=== PATIENT | female | born 2000 | race Caucasian/White ===

== ENCOUNTER 2020-01-25 16:07 | Outpatient (REF) | payer OTHER, SELFPAY | END 2020-01-25 16:08 | disposition home or self-care (01) | LOC: HO.LAB 16:07 | PROVIDERS: PCP Nurse Practitioner Pediatrics; Visit Provider Internal Medicine | DX: Z20.828 Contact with and (suspected) exposure to other viral communicable diseases (principal) | CPT/HCPCS: C9803; U0003 ==

== ENCOUNTER 2022-06-06 16:40 | Outpatient (REF) | payer OTHER, SELFPAY ==
[2022-06-07 11:31] LABS: Appearance Urine Turbid; Color Urine Yellow; Glucose Urine UA Negative (Negative); Leukocyte Esterase Urine Trace (Negative); Nitrite Urine Positive (Negative); Specific Gravity - Urine >= 1.030 (1.005-1.025); UMIC TRIGGER UA YES; Urine Blood Negative (Negative); Urine Ketones Negative (Negative); Urine Protein Trace mg/dL (Neg-Trace)
[2022-06-07 11:41] LABS: Bacteria Urine 4+ (None Seen); Calcium Oxalate Crystals Urine Present; Hyaline Casts Urine 0-2 /LPF (0-2); RBC Urine 0-2 /HPF (0-2)
== END 2022-06-06 16:41 | disposition home or self-care (01) ==
LOC: HO.LAB 16:40
PROVIDERS: Visit Provider Hospitalist
DX: R82.90 Unspecified abnormal findings in urine (principal)
CPT/HCPCS: 81001; 81003

== ENCOUNTER 2023-07-01 16:06 | Outpatient (AMB) | payer OTHER, SELFPAY ==
[2023-07-01 16:07] VITALS: BP 137/74; PULSE 84; RESP 13; TEMP 36.6; O2SAT 100; BMI 37.8
--- NOTE | 2023-07-01 16:07 | A.OFFPC_ITS ---
Vital Signs 07/01/23 16:07 Height 5 ft 1 in Weight 200 lb BMI 37.8 BP 137/74 Blood Pressure Location Rt brachial Position Sitting Respiration 13 Pulse 84 Pulse Source Pulse Oximeter Temp 97.9 F Temp Source Temporal Artery Scan Pulse Oximetry (%) 100 Oxygen Delivery Method Room Air Intake Visit Reasons: STEFANIE from [facility] Establish Care Intake Note: Patient is here to establish care with Tatiana Stewart. Patient reports she would like routine labs, with thyroid. Patient would like a referral for allergy and immunology. Patient reports she has no other concerns. Nub Card Tender Required: No Accompanied by: Self / Same As Patient Allergies No Known Allergies Allergy (Verified 07/01/23 16:27) Medication List - Last Reconciled 07/01/23 by ANDRESSA Garcia No Known Home Meds Tobacco use date assessed: 07/01/23 Dental Screening Dental Screen Date: 07/01/23 Did you have a dental visit in the last 12 months?: Yes Did you have a dental problem in the last 6 months where you did not have access to dental care?: No Was dental information given to patient?: Patient has dentist HPI HPI Comments History of Present Illness Details 23 y/o F with obesity, renal stones, GA D, MDD, hemorrhoids, low back pain Status post nephrolithotomy Health Maintenance: Pap reports UTD 2022 Specialists: None Here today for CPE MARCEL/MDD - not active w/ counselor, has a contact and will schedule. Not on meds Seasonal allergies wants to be tested Requests STD screen/testing. Declines vaccines Wants to see Chiro for chronic low back pain Hemorrhoid, comes and goes, r/t constipation, tx w/ Miralax. Did see GI in the past; discouraged surgery d/t childbearing years. COUNTS INCLUDE 234 BEDS AT THE [facility] Medical History (Updated 07/01/23 @ 17:08 by ANDRESSA Garcia) H/O nephrolithotomy with removal of calculi Surgical History (Updated 07/01/23 @ 16:17 by Lexie Parker CMA) No pertinent past surgical history Family History (Updated 07/01/23 @ 16:17 by Lexie Parker CMA) Mother Hypertension Diabetes Social History (Updated 07/01/23 @ 16:19 by Lexie Parker CMA) Household Members: Family Housing: Apartment 75 years or older and lives alone: No Alcohol intake: current Alcohol intake frequency: holidays/special occasions only Patient Tobacco Use Status: Never used Tobacco e-Cigarette/Vaping Use: Never Used service: No Current occupational status: employed Current occupation: [employer] Current occupational exposures/hazards: No Cognitive needs: No Hearing needs: No Vision needs: Yes (wears glasses ) Questionnaire PHQ-9 Over the last 2 weeks, how often have you been bothered by any of the following problems? 1. Little interest or pleasure in doing things: not at all 2. Feeling down, depressed, or hopeless: several days 3. Trouble falling or staying asleep, or sleeping too much: several days 4. Feeling tired or having little energy: several days 5. Poor appetite or overeating: more than half the days 6. Feeling bad about yourself - or that you are a failure or have let yourself or your family down: nearly every day 7. Trouble concentrating on things, such as reading the newspaper or watching television: more than half the days 8. Moving or speaking so slowly that other people could have noticed. Or the opposite - being so fidgety or restless that you have been moving around a lot more than usual: not at all 9. Thoughts that you would be better off or of hurting yourself in some way: not at all Total score: 10 Depression Screening Interpretation: Positive Depression Screening Follow-up: Existing condition Depression Screening Done: Yes 37298 - PHQ-9 Billing: Yes Source: Developed by Drs. Ubaldo Pierre, Rylee Almazan, Cuate Lerma and colleagues, with an educational ricky from [employer]. Thrive Questionnaire Date Thrive assessed: 07/01/23 I am a: Patient What is your living situation today?: I have a steady place to live Within the past 12 months, did the food you bought not last and you didn't have the money to get more?: Never true Within the past 12 months, did you worry whether your food would run out before you got money to buy more?: Never true Do you have trouble paying for medicines?: No Do you have trouble getting transportation to medical appointments?: No Do you have trouble paying your heating and electricity bill?: No Do you have trouble taking care of your child, family member or friend?: No Do you have trouble with day-to-day activities such as bathing, preparing meals, shopping, managing finances, etc.?: No Are you currently unemployed and looking for a job?: No Are you interested in more education?: No Please select the resources that you would like help with: None Currently or been in a relationship where the following occur: no concerns reported THRIVE Score: 0 AUDIT C Alcohol Use Questionnaire (AUDIT-C) 1. How often do you have a drink containing alcohol?: Monthly or less 2. How many drinks containing alcohol do you have on a typical day when you are drinking?: 1 or 2 3. How often do you have six or more drinks on one occasion?: Never Total Score: 1 Score Reviewed/Action Taken: Yes MARCEL-7 AMB Questionnaire MARCEL-7 Date MARCEL - 7 assessed: 07/01/23 Feeling nervous, anxious, or on edge: 3 = Nearly every day Not being able to stop or control worryin = Several days Worrying too much about different things: 3 = Nearly every day Trouble relaxin = Several days Being so restless that it is hard to sit still: 1 = Several days Becoming easily annoyed or irritable: 1 = Several days Feeling afraid as if something awful might happen: 3 = Nearly every day Total MARCEL-7 score (0-4 normal; 5-9 mild; 10-14 moderate; 15-21 severe): 13 Source: Developed by Drs. Ubaldo Pierre, Rylee Almazan, Cuate Lerma and colleagues, with an educational ricky from [employer]. MARCEL-7 Assessment Billing MARCEL-7 Assessment Tool: MARCEL-7 Assessment 77424 Review of Systems Const Details: Constitutional: Denies fever. Skin: Denies rash. Eye: Denies eye pain. ENMT: Denies sore throat and nasal congestion. Respiratory: Denies shortness of breath and cough. Gastrointestinal: Denies nausea, vomiting or abdominal pain. Cardiovascular: Denies chest pain and syncope. Genitourinary: Denies dysuria. Musculoskeletal: Denies back pain and extremity pain. Neurologic: Denies headaches, confusion, and weakness. Psychiatric: Denies suicidal thoughts and substance abuse. Allergy/ Immunologic: Denies impaired immunity. Physical exam (Primary Care) Vital Signs: Last Vital Signs Temp 97.9 F 07/01/23 16:07 Pulse 84 07/01/23 16:07 Resp 13 07/01/23 16:07 BP 137/74 07/01/23 16:07 Pulse Ox 100 07/01/23 16:07 Oxygen Delivery Method Room Air 07/01/23 16:07 BMI result Body Mass Index 37.8 BMI Assessment/Plan discussion: High BMI High, discussed plan: lifestyle Tobacco/Smoking Status: Tobacco use Status Tobacco use date assessed 07/01/23 07/01/23 16:23 Patient Tobacco Use Status Never used Tobacco 07/01/23 16:23 e-Cigarette/Vaping Use Never Used 07/01/23 16:19 PHQ-9: PHQ-9 Score PHQ-9: Total score 10 07/01/23 16:23 Depression Screening Interpretation: Positive Depression Screening Follow-up: Existing condition Thrive Assessment: Date of Thrive Assessment Date Thrive assessed 07/01/23 07/01/23 16:23 Currently or been in a relationship where the following occur: no concerns reported Advance Care Planning discussion: Exists, not on file Date of discussion: 07/01/23 Who was present: SELF Forms completed: Health Care Proxy and MOLST Time spent: 1-15 minutes, not on file Actual minutes spent: 3 Const Other: General: Well developed, well nourished, in no acute distress. Appears stated age. Head: Normocephalic, atraumatic. Eyes: Pupils are equal, round and reactive to light and accommodation. Conjunctivae are clear. Vision grossly normal. Ears: TMs clear AU, EACS WNL Nose: Patent, without discharge. Mouth: There are no ulcers or lesions noted. No inflammation, no post nasal drip, no plaques nor exudates. Neck: Supple, no adenopathy or thyromegaly. Lungs: Clear to auscultation bilaterally. No rales, rhonchi or wheeze noted. Good air flow in all [place]. Heart: Regular rate and rhythm. No murmurs, click, rubs or gallops are noted. Abdomen: Bowel sounds present in all quadrants. The abdomen is soft, nontender, with no masses or organomegaly noted. No hernias are noted. Musculoskeletal: Joints are nontender, without swelling, redness, or effusions. Range of motion is observed to be normal. Pulses: Peripheral pulses are equal and palpable bilaterally. Extremities: No clubbing, cyanosis nor edema is noted. Neurologic: Gait and station normal. Cranial Nerves 2-12 intact. Motor strength grossly symmetrical and intact. No sensory loss. Balance normal. Skin: No rashes, ulcers, or lesions noted. Turgor is good. Skin color is good. Hair and nails are without abnormalities. Psych: Normal eye contact, affect and mood appropriate, and normal interact ions. Patient is alert and appropriate to context. Assessment and Plan Assessment & Plan (1) Normal physical exam: Code(s): Z00.00 - Encounter for general adult medical examination without abnormal findings (2) No pertinent past surgical history: Code(s): Z78.9 - Other specified health status (3) Laboratory exam ordered as part of routine general medical examination: Code(s): Z00.00 - Encounter for general adult medical examination without abnormal findings (4) Allergies: Comment: refer for allergy testing per request Code(s): T78.40XA - Allergy, unspecified, initial encounter Qualifiers: Encounter type: initial encounter Qualified Code(s): T78.40XA - Allergy, unspecified, initial encounter (5) Encounter for screening examination for sexually transmitted disease: Code(s): Z11.3 - Encounter for screening for infections with a predominantly sexual mode of transmission (6) Skin cancer screening: Comment: referred to derm per request Code(s): Z12.83 - Encounter for screening for malignant neoplasm of skin (7) Hemorrhoid: Comment: supportive care witch rogers pads, constipation control using OTC meds if worsening, can refer to gI Code(s): K64.9 - Unspecified hemorrhoids Qualifiers: Hemorrhoid type: first degree Qualified Code(s): K64.0 - First degree hemorrhoids (8) Low back pain: Comment: refer to chiro per request Code(s): M54.50 - Low back pain, unspecified Qualifiers: Chronicity: chronic Back pain laterality: left Sciatica presence: with sciatica Sciatica laterality: sciatica of left side Qualified Code(s): M54.42 - Lumbago with sciatica, left side; G89.29 - Other chronic pain Orders: Orders Hemoglobin A1c Today Z00.00 - Encounter for general adult medical examination without abnormal findings Microalbumin, Random (w Creat) Today Z00.00 - Encounter for general adult medical examination without abnormal findings Vitamin D 1,25 dihydroxy Today Z00.00 - Encounter for general adult medical examination without abnormal findings Complete Blood Count no Diff Today Z00.00 - Encounter for general adult medical examination without abnormal findings Herpes Simplex Virus Ab IgG Today Z11.3 - Encounter for screening for infections with a predominantly sexual mode of transmission Comprehensive [place]. Panel Fast Today Z00.00 - Encounter for general adult medical examination without abnormal findings Lipid Panel Today Z00.00 - Encounter for general adult medical examination without abnormal findings IRON PROFILE Today Z00.00 - Encounter for general adult medical examination without abnormal findings Vitamin B12 Today Z00.00 - Encounter for general adult medical examination without abnormal findings HIV Ab/Ag Today Z11.3 - Encounter for screening for infections with a predominantly sexual mode of transmission CT NG by PCR Today Z11.3 - Encounter for screening for infections with a predominantly sexual mode of transmission Syphilis Screen Today Z11.3 - Encounter for screening for infections with a predominantly sexual mode of transmission Referrals Dermatology Referral Z12.83 - Encounter for screening for malignant neoplasm of skin Allergy & Immunology Referral T78.40XA - Allergy, unspecified, initial encounter Chiropractic Referral M54.50 - Low back pain, unspecified Patient Instructions: RTO 1 YEAR FOR CPE, SOONER PRN Try Witch Rogers Pads & control constipation using OTC meds, Health screenings for women ages 18 to 39 You should visit your health care provider from time to time, even if you are healthy. The purpose of these visits is to: Screen for medical issues Assess your risk for future medical problems Encourage a healthy lifestyle Update vaccinations and other preventive care services Help you get to know your provider in case of an illness Information Even if you feel fine, you should still see your provider for regular checkups. These visits can help you avoid problems in the future. For example, the only way to find out if you have high blood pressure is to have it checked regularly. High blood sugar and high cholesterol levels also may not have any symptoms in the early stages. A simple blood test can check for these conditions. There are specific times when you should see your provider or receive specific health screenings. The [place] Preventive Services Task Force publishes a list of recommended screenings. Below are screening guidelines for women ages 18 to 39. BLOOD PRESSURE SCREENING Your blood pressure should be checked at least once every 3 to 5 years if: Your blood pressure is in the normal range (top number less than 120 mm Hg and bottom number less than 80 mm Hg) You don't have risk factors for high blood pressure Ask your provider if you need your blood pressure checked more often if: The top number is 120 to 129 mm Hg or the bottom number is 70 to 79 mm Hg You have diabetes, heart disease, kidney problems, are overweight, or have certain other health conditions You have a first-degree relative with high blood pressure You are Black You had high blood pressure during a If the top number is 130 mm Hg or greater or the bottom number is 80 mm Hg or greater, this is considered stage 1 hypertension. Schedule an appointment with your provider to learn how you can reduce your blood pressure. Watch for blood pressure screenings in your area. Ask your provider if you can stop in to have your blood pressure checked. BREAST CANCER SCREENING Experts do not agree about the benefits of breast self-exams in finding breast cancer or saving lives. Talk to your provider about what is best for you. A screening mammogram is not recommended for most women under age 40. Your provider may discuss and recommend mammograms, MRI scans, or ultrasounds if you have an increased risk for breast cancer, such as: A mother or sister who had breast cancer at a young age (most often starting screening earlier than the age the close relative was diagnosed) You carry a high-risk genetic marker CERVICAL CANCER SCREENING Cervical cancer screening should start at age 21 years unless your provider advises otherwise. After the first test: Women ages 21 through 29 should have a Pap test every 3 years. Exoprts do not agree on whether HPV testing is recommended for this age group. Women ages 30 through 65 should be screened with either a Pap test every 3 years or the HPV test every 5 years or both tests every 5 years (called cotesting ). Women who have been treated for precancer (cervical dysplasia) should continue to have Pap tests for 20 years after treatment or until age 65, whichever is longer. If you have had your uterus and cervix removed (total hysterectomy), and you have not been diagnosed with cervical cancer or precancer (high grade cervical neoplasia), you do not need cervical cancer screening. CHOLESTEROL SCREENING Cholesterol screening should begin at: Age 45 for women with no known risk factors for coronary heart disease Age 20 for women with known risk factors for coronary heart disease Repeat cholesterol screening should take place: Every 5 years for women with normal cholesterol levels More often if changes occur in lifestyle (including weight gain and diet) More often if you have diabetes, heart disease, kidney problems, or certain other conditions DIABETES SCREENING You should be screened for diabetes starting at age 35 and then repeated every 3 years if you have no risk factors for diabetes. Screening may need to start earlier and be repeated more often if you have other risk factors for diabetes, such as: You have a first degree relative with diabetes. You are overweight or have obesity. You have high blood pressure, prediabetes, or a history of heart disease. Screening for diabetes should be done if you are planning to become and you are overweight and have other risk factors such as high blood pressure. DENTAL EXAM Go to the dentist once or twice every year for an exam and cleaning. Your dentist will evaluate if you need more frequent visits. EYE EXAM Have an eye exam every 5 to 10 years before age 40. If you have vision problems, have an eye exam every 2 years or more often if recommended by your provider. You should have an eye exam that includes an examination of your retina (back of your eye) at least every year if you have diabetes. IMMUNIZATIONS Commonly needed vaccines include: Flu shot: get one every year. COVID-19 vaccine: ask your provider what is best for you. Tetanus-diphtheria and acellular pertussis (Tdap) vaccine: have one at or after age 19 as one of your tetanus-diphtheria vaccines if you did not receive it as an adolescent. Tetanus-diphtheria: have a booster (or Tdap) every 10 years. Varicella vaccine: receive 2 doses if you never had chickenpox or the varicella vaccine. Hepatitis B vaccine: receive 2, 3, or 4 doses, depending on your exact circumstances. Measles, mumps, and rubella (MMR) vaccine: receive 1 to 2 doses if you are not already immune to MMR. Your provider can tell you if you are immune. Ask your provider about the human papillomavirus (HPV) vaccine if: You have not received the HPV vaccine in the past You have not completed the full vaccine series (you should catch up on this shot) Ask your provider if you should receive other immunizations if you have certain health problems that increase your risk for some diseases such as pneumonia. INFECTIOUS DISEASE SCREENING Women who are sexually active should be screened for chlamydia and gonorrhea up until age 25. Women 25 years and older should be screened for chlamydia and gonorrhea if at high risk. Screening for hepatitis C: All adults ages 18 to 79 should get a one-time test for hepatitis C. people should be screened at every . Screening for human immunodeficiency virus (HIV): All people ages 15 to 65 should get a one-time test for HIV. Depending on your lifestyle and medical history, you may also need to be screened for infections such as syphilis and HIV, as well as other infections. PHYSICAL EXAM All adults should visit their provider from time to time, even if they are hea lthy. The purpose of these visits is to: Screen for disease Assess your risk of future medical problems Encourage a healthy lifestyle Update your vaccinations and other preventive care services Maintain a relationship with a provider in case of an illness Your height, weight, and BMI should be checked at every exam. During your exam, your provider may ask you about: Depression and anxiety Diet and exercise Alcohol and tobacco use Safety issues, such as using seat belts, smoke detectors, and intimate partner violence Your medicines and risk for interactions SKIN SELF-EXAM Your provider may check your skin for signs of skin cancer, especially if you're at high risk, such as if you: Have had skin cancer before Have close relatives with skin cancer Have a weakened immune system OTHER SCREENING Talk with your provider about colon cancer screening if you have a strong family history of colon cancer or polyps, or if you have had inflammatory bowel disease or polyps yourself. Routine bone density screening of women under 40 is not recommended. Review Flu Vaccine not done: patient reason Declined TDap/Td: 07/01/23 Coding Level of Care Code Est Pt Prev Care 18-39y(91579) Diagnoses Normal physical exam Z00.00 No pertinent past surgical history Z78.9 Laboratory exam ordered as part of routine general medical examination Z00.00 Allergy, initial encounter T78.40XA Encounter type: initial encounter Encounter for screening examination for sexually transmitted disease Z11.3 Skin cancer screening Z12.83 Grade I hemorrhoids K64.0 Hemorrhoid type: first degree Chronic left-sided low back pain with left-sided sciatica M54.42; G89.29 Chronicity: chronic Back pain laterality: left Sciatica presence: with sciatica Sciatica laterality: sciatica of left side Additional Codes MARCEL-7 Assessment Billing - MARCEL-7 Assessment Tool: MARCEL-7 Assessment [id number] ([id number]) Vital Signs *Quality* - Advance Care Planning discussion: Exists, not on file ([id number]) Vital Signs *Quality* - Time spent: 1-15 minutes, not on file ([id number])
== END 2023-07-01 16:56 | disposition home or self-care (01) ==
PROVIDERS: PCP Hospitalist; Visit Provider Nurse Practitioner Family
DX: Z00.00 Encounter for general adult medical examination without abnormal findings (principal); E66.01 Morbid (severe) obesity due to excess calories; Z78.9 Other specified health status; Z68.37 Body mass index [BMI] 37.0-37.9, adult; T78.40XA Allergy, unspecified, initial encounter; Z11.3 Encounter for screening for infections with a predominantly sexual mode of transmission; Z12.83 Encounter for screening for malignant neoplasm of skin; K64.0 First degree hemorrhoids; M54.42 Lumbago with sciatica, left side; G89.29 Other chronic pain
CPT/HCPCS: 1124F; 99395

== ENCOUNTER 2023-11-23 10:43 | Outpatient (REF) | payer OTHER, SELFPAY ==
[2023-11-23 11:21] LABS: Mean Corpuscular HGB Conc 32.5 g/dl (31.0-35.0); Mean Corpuscular Hemoglobin 25.6 pg (27.0-33.0); Mean Corpuscular Volume 78.9 fL (80.0-98.0); Mean Platelet Volume 10.7 fL (9.4-12.3); Platelet Count 256 X10*3/uL (160-400); Red Blood Count 5.07 X10*6/uL (4.20-5.50); Red Cell Distribution Width 14.8 % (11.0-16.0); White Blood Count 8.4 X10*3/uL (4.8-10.8)
[2023-11-23 11:54] LABS: Alanine Aminotransferase 17 U/L (0-31); Albumin Level 3.9 g/dL (3.5-5.0); Alkaline Phosphatase 85 U/L (39-117); Anion Gap 10 (12-20); Aspartate Amino Transferase 10 U/L (5-31); Bilirubin Total 0.3 mg/dL (0.0-1.0); Blood Urea Nitrogen 13 mg/dL (9-16); Calcium 9.5 mg/dL (8.4-10.2); Carbon Dioxide 25 mmol/L (22-29); Chloride 108 mmol/L (96-108); Cholesterol 189 mg/dL (<200); Estimated Glomerular Filt Rate > 60; Glucose Fasting 96 mg/dL (60-99); HDL Cholesterol 36 mg/dL (>40); Iron 35 mcg/dL (30-160); LDL Cholesterol Calculated 140 mg/dL (<100); Percent Iron Saturation 12 % (15-50); Potassium 4.4 mmol/L (3.3-5.1); Sodium 139 mmol/L (135-145); Total Iron Binding Capacity 300 mcg/dL (228-428); Total Protein 7.2 g/dL (6.5-8.0); Triglycerides 68 mg/dL (<150); Unsaturated Iron Binding 265 ug/dL
[2023-11-23 12:23] LABS: Vitamin B12 316 pg/mL (200-900)
[2023-11-23 14:02] LABS: Estimated Average Glucose 105 mg/dL; Hemoglobin A1C 110.9151 umol/L; Hemoglobin A1c % 5.3 % (<6.0)
[2023-11-23 20:09] LABS: Creatinine Urine 233.19 mg/dL; Microalbum/Creatinine Ratio Ur 3.4 ug/mg cr (<30)
[2023-11-25 08:45] LABS: Syphilis Screen Nonreactive (Nonreactive)
[2023-11-25 09:00] LABS: HIV AB/AG Nonreactive (Nonreactive); HIV Num 1 0.06 S/CO (0.00-0.99)
[2023-11-25 19:23] LABS: Herpes Simplex Type 2 IgG <0.90 index
[2023-11-29 01:58] LABS: VITAMIN D (1,25 OH) D3 40 pg/mL; Vit D (1,25-Dihydroxy) Total 40 pg/mL (18-72); Vitamin D (1,25 OH) D2 <8 pg/mL
== END 2023-11-23 10:44 | disposition home or self-care (01) ==
LOC: HO.LAB 10:43
PROVIDERS: PCP Nurse Practitioner Family; Visit Provider Nurse Practitioner Family
DX: Z00.00 Encounter for general adult medical examination without abnormal findings (principal); Z11.3 Encounter for screening for infections with a predominantly sexual mode of transmission
CPT/HCPCS: 36415; 80053; 80061; 82043; 82570; 82607; 82652; 83036; 83540; 85027; 86695; 86696; 86780; 87389

== ENCOUNTER 2024-03-16 15:26 | Outpatient (AMB) | payer OTHER, SELFPAY ==
--- NOTE | 2024-03-16 15:27 | A.OFFPC_ITS ---
Vital Signs 03/16/24 15:30 Height 5 ft 1 in Weight 203 lb 2 oz BMI 38.4 BP 118/68 Blood Pressure Location Rt brachial Position Sitting Respiration 12 Pulse 68 Pulse Source Pulse Oximeter Pulse Oximetry (%) 98 Oxygen Delivery Method Room Air Intake Visit Reasons: follow up /anxiety Intake Note: follow up on anxiety Custom Decorating Consultant Required: No Allergies No Known Allergies Allergy (Verified 03/16/24 15:28) Medication List - Last Reconciled 03/16/24 by ANDRESSA Garcia ferrous sulfate 325 mg PO DAILY Tobacco use date assessed: 07/01/23 Dental Screening Dental Screen Date: 07/01/23 HPI HPI Comments History of Present Illness Details 23 y/o F with obesity, renal stones, GA D, MDD, hemorrhoids, low back pain, anemia, hyperlipidemia Status post nephrolithotomy Health Maintenance: Pap reports UTD 2022 Specialists: Counseling Chiro Derm History of Present Illness The patient is a 23 year old female presenting with anxiety and associated symptoms. She reports a fluctuating course of anxiety, intensified around a specific timeframe, contributing to feelings of significant distress and daily misery. The anxiety has been impacting her daily life, leading to episodes of panic at work. The history includes previous discussions about her anxiety and mentions the consideration of counseling. She describes symptoms of overthinking and stress since her initial visit. Recently, she underwent laboratory investigations and was unable to interpret the results due to difficulty accessing her portal. There was an ongoing issue with communication for referrals to dermatology and chiropractic services. Additionally, she reports a significant decrease in quality of life due to mixed anxiety and depressive symptoms, leading to changes in her social behavior and lifestyle. Past medical history includes an elevated cholesterol level and iron deficiency anemia, indicating potential dietary and nutritional challenges. 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 Social History - Exercise: The patient reports attempti ng to maintain regular gym attendance and makes efforts to improve dietary habits. - Nutrition: The patient has ceased soda consumption and attempts a balanced diet but continues to experience weight management struggles. - Weight Management: The patient express es a persistent struggle to lose weight despite changes in dietary intake and physical activity. Physical Exam General: Awake, alert. No apparent distress Eyes: Sclera and conjunctiva clear bilaterally Throat: Moist mucosa membrane, pharynx within normal limits Cardiovascular: Regular rate and rhythm Respiratory: Clear to auscultation bilaterally Mood and affect appropriate Results - Labs: Cholesterol levels were slightly elevated, low blood iron counts, HSV type 1 antibodies detected in STD panel, otherwise negative for STDs. Plan - Generalized Anxiety Disorder: Referral to counseling through community navigator; consideration of therapeutic options including in-person or remote counseling depending on patient preference. - Mixed Anxiety and Depressive Disorder: Referral includes both anxiety and depression to be addressed in counseling. - Iron Deficiency Anemia: Vitamin supple mentation with iron tablets, lifestyle modifications including dietary adjustments for iron intake. - Hypercholesterolemia: Recommendation f or dietary modifications and exercise to manage cholesterol levels. - Herpes Simplex Virus Type 1: Monitorin g for potential outbreaks, education on potential symptoms. - [facility] - Recommend contact with insurance for s pecific assistant strength coach, chiropractor, and allergy/immunology referrals. Patient was informed and verbally consented to the use of an ambient scribe for clinic note documentation during this visit. Discussion Notes During this visit, we discussed the ongoing concern for anxiety and associated depressive symptoms. I recommended counseling to provide therapeutic support, with a focus on both anxiety and depression. A referral was made to facilitate this. We reviewed the recent lab results, which indicated elevated cholesterol and low iron levels, and discussed the importance of lifestyle modifications and medication compliance for iron. I reassured the patient regarding the positive HSV type 1 result, emphasizing its commonality and advising vigilance for symptoms, while noting no immediate treatment is required. For weight management, I suggested consulting with our hammer adjuster to explore dietary and nutritional strategies. We also outlined a follow-up schedule to monitor progress and effectiveness of interventions. Anticipatory guidance was given for potential side effects of iron supplementation. Patient Instructions - Initiate counseling services as arrang ed by community navigator. - Take iron supplements daily as prescri bed. - Follow dietary and lifestyle recommend ations to manage cholesterol levels. - Monitor for any symptoms indicative of HSV type 1 and contact if lesions develop. - Schedule follow-up blood work to check cholesterol and iron levels. - Contact insurance for specific special ist referrals if needed. - Use the patient portal for any further communication regarding health questions or concerns. - Return in 6-8 weeks for follow-up on a nxiety and referral progress. This note is constructed using voice recognition software. While every effort has been made to ensure accuracy in eeo officer, still errors may have been included Sometimes, these errors may affect the content or meaning of the given sentence . Total time spent caring for the patient today was 45 minutes. This includes time spent before the visit reviewing the chart, time spent during the visit, and time spent after the visit on documentation [facility] Medical History (Updated 03/17/24 @ 14:55 by Tatiana Stewart [facility]-) H/O nephrolithotomy with removal of calculi Surgical History (Updated 07/01/23 @ 16:17 by Lexie Parker CMA) No pertinent past surgical history Family History (Updated 07/01/23 @ 16:17 by Lexie Parker CMA) Mother Hypertension Diabetes Social History (Updated 07/01/23 @ 16:19 by Lexie Parker CMA) Household Members: Family Housing: Apartment 75 years or older and lives alone: No Alcohol intake: current Alcohol intake frequency: holidays/special occasions only Patient Tobacco Use Status: Never used Tobacco e-Cigarette/Vaping Use: Never Used service: No Current occupational status: employed Current occupation: [employer] Current occupational exposures/hazards: No Cognitive needs: No Hearing needs: No Vision needs: Yes (wears glasses ) Questionnaire PHQ-9 Over the last 2 weeks, how often have you been bothered by any of the following problems? 1. Little interest or pleasure in doing things: more than half the days 2. Feeling down, depressed, or hopeless: several days 3. Trouble falling or staying asleep, or sleeping too much: more than half the days 4. Feeling tired or having little energy: more than half the days 5. Poor appetite or overeating: nearly every day 6. Feeling bad about yourself - or that you are a failure or have let yourself or your family down: more than half the days 7. Trouble concentrating on things, such as reading the newspaper or watching television: several days 8. Moving or speaking so slowly that other people could have noticed. Or the opposite - being so fidgety or restless that you have been moving around a lot more than usual: more than half the days 9. Thoughts that you would be better off or of hurting yourself in some way: not at all Total score: 15 Depression Screening Interpretation: Positive Depression Screening Follow-up: Existing condition and Community Mental Health Worker F/U Depression Screening Done: Yes 19243 - PHQ-9 Billing: Yes Source: Developed by Drs. Ubaldo Pierre, Rylee Almazan, Cuate Lerma and colleagues, with an educational ricky from [employer]. Thrive Questionnaire Date Thrive assessed: 03/16/24 I am a: Patient What is your living situation today?: I have a steady place to live Within the past 12 months, did the food you bought not last and you didn't have the money to get more?: Often true Within the past 12 months, did you worry whether your food would run out before you got money to buy more?: Never true Do you have trouble paying for medicines?: I choose not to answer this question Do you have trouble getting transportation to medical appointments?: No Do you have trouble paying your heating and electricity bill?: No Do you have trouble taking care of your child, family member or friend?: No Do you have trouble with day-to-day activities such as bathing, preparing meals, shopping, managing finances, etc.?: I choose not to answer this question Are you currently unemployed and looking for a job?: No Are you interested in more education?: I choose not to answer this question Please select the resources that you would like help with: Daily support Currently or been in a relationship where the following occur: I choose not to answer THRIVE Score: 1 AUDIT C Alcohol Use Questionnaire (AUDIT-C) 2. How many drinks containing alcohol do you have on a typical day when you are drinking?: 3 or 4 3. How often do you have six or more drinks on one occasion?: Never Total Score: 1 Score Reviewed/Action Taken: Yes MARCEL-7 AMB Questionnaire MARCEL-7 Date MARCEL - 7 assessed: 03/16/24 Feeling nervous, anxious, or on edge: 2 = More than half the days Not being able to stop or control worryin = More than half the days Worrying too much about different things: 3 = Nearly every day Trouble relaxin = More than half the days Being so restless that it is hard to sit still: 1 = Several days Becoming easily annoyed or irritable: 1 = Several days Feeling afraid as if something awful might happen: 3 = Nearly every day Total MARCEL-7 score (0-4 normal; 5-9 mild; 10-14 moderate; 15-21 severe): 14 Source: Developed by Drs. Ubaldo Pierre, Rylee Almazan, Cuate Lerma and colleagues, with an educational ricky from [employer]. MARCEL-7 Assessment Billing MARCEL-7 Assessment Tool: MARCEL-7 Assessment 88275 Physical exam (Primary Care) Vital Signs: Last Vital Signs Pulse 68 03/16/24 15:30 Resp 12 03/16/24 15:30 BP 118/68 03/16/24 15:30 Pulse Ox 98 03/16/24 15:30 Oxygen Delivery Method Room Air 03/16/24 15:30 BMI result Body Mass Index 38.4 BMI Assessment/Plan discussion: High BMI High, discussed plan: lifestyle Tobacco/Smoking Status: Tobacco use Status Tobacco use date assessed 07/01/23 03/16/24 15:28 Patient Tobacco Use Status Never used Tobacco 03/16/24 15:28 e-Cigarette/Vaping Use Never Used 03/16/24 15:28 PHQ-9: PHQ-9 Score PHQ-9: Total score 15 03/16/24 16:08 Depression Screening Interpretation: Positive Depression Screening Follow-up: Existing condition and Community Mental Health Worker F/U Thrive Assessment: Date of Thrive Assessment Date Thrive assessed 03/16/24 03/16/24 15:28 Currently or been in a relationship where the following occur: I choose not to answer Coding Level of Care Code Est Pt Level 5 (35310) Complex EM visit Add On G2211 Diagnoses MARCEL (generalized anxiety disorder) F41.1 Herpes simplex B00.9 Moderate episode of recurrent major depressive disorder F33.1 Major depression episode severity: moderate Iron deficiency anemia, unspecified iron deficiency anemia type D50.9 Iron deficiency anemia type: unspecified iron deficiency Moderate mixed hyperlipidemia not requiring statin therapy E78.2 Hyperlipidemia type: moderate mixed hyperlipidemia not requiring statin therapy Class 2 severe obesity due to excess calories with serious comorbidity and body mass index (BMI) of 38.0 to 38.9 in adult E66.812; E66.01; Z68.38 Obesity type: due to excess calories Serious obesity comorbidity presence: with serious comorbidity BMI 38.0-38.9,adult Z68.38 Additional Codes MARCEL-7 Assessment Billing - MARCEL-7 Assessment Tool: MARCEL-7 Assessment 41298 ([id number]) PHQ-9 - 23781 - PHQ-9 Billing: Yes ([id number]) Assessment & Plan Assessment & Plan (1) MARCEL (generalized anxiety disorder): Code(s): F41.1 - Generalized anxiety disorder Category: Medical (2) Herpes simplex: Code(s): B00.9 - Herpesviral infection, unspecified Category: Medical (3) MDD (major depressive disorder), recurrent episode: Code(s): F33.9 - Major depressive disorder, recurrent, unspecified Category: Medical Qualifiers: Major depression episode severity: moderate Qualified Code(s): F33.1 - Major depressive disorder, recurrent, moderate (4) Iron deficiency anemia: Code(s): D50.9 - Iron deficiency anemia, unspecified Category: Medical Qualifiers: Iron deficiency anemia type: unspecified iron deficiency Qualified Code(s): D50.9 - Iron deficiency anemia, unspecified (5) Hyperlipidemia: Code(s): E78.5 - Hyperlipidemia, unspecified Category: Medical Qualifiers: Hyperlipidemia type: moderate mixed hyperlipidemia not requiring statin therapy Qualified Code(s): E78.2 - Mixed hyperlipidemia (6) Class 2 obesity with body mass index (BMI) of 38.0 to 38.9 in adult: Comment: HLD Code(s): E66.812 - Obesity, class 2; Z68.38 - Body mass index [BMI] 38.0-38.9, adult Category: Medical Qualifiers: Obesity type: due to excess calories Serious obesity comorbidity presence: with serious comorbidity Qualified Code(s): E66.812 - Obesity, class 2; E66.01 - Morbid (severe) obesity due to excess calories; Z68.38 - Body mass index [BMI] 38.0-38.9, adult (7) BMI 38.0-38.9,adult: Code(s): Z68.38 - Body mass index [BMI] 38.0-38.9, adult Category: Medical Plan . Orders: Orders TSH reflex Free T4 03/16/24 E66.01 - Morbid (severe) obesity due to excess calories, E66.812 - Obesity, class 2, Z68.38 - Body mass index [BMI] 38.0-38.9, adult Referrals Nurse Navigator Referral F33.9 - Major depressive disorder, recurrent, unspecified, F41.1 - Generalized anxiety disorder Nutrition/Dietitian Referral E78.5 - Hyperlipidemia, unspecified, Z68.38 - Body mass index [BMI] 38.0-38.9, adult Patient Instructions: .
[2024-03-16 15:30] VITALS: BP 118/68; PULSE 68; RESP 12; O2SAT 98; BMI 38.4
== END 2024-03-16 16:08 | disposition home or self-care (01) ==
PROVIDERS: PCP Nurse Practitioner Family; Visit Provider Nurse Practitioner Family
DX: F41.1 Generalized anxiety disorder (principal); F33.1 Major depressive disorder, recurrent, moderate; E66.01 Morbid (severe) obesity due to excess calories; Z68.38 Body mass index [BMI] 38.0-38.9, adult; D50.9 Iron deficiency anemia, unspecified; B00.9 Herpesviral infection, unspecified; E78.2 Mixed hyperlipidemia

== ENCOUNTER → 2024-03-16 15:26 | Outpatient (BNVA) | payer OTHER, SELFPAY | PROVIDERS: PCP Nurse Practitioner Family; Visit Provider Nurse Practitioner Family | DX: F41.1 Generalized anxiety disorder (principal); F33.1 Major depressive disorder, recurrent, moderate; E78.00 Pure hypercholesterolemia, unspecified; B00.9 Herpesviral infection, unspecified; D50.9 Iron deficiency anemia, unspecified; E78.2 Mixed hyperlipidemia; E66.812 Obesity, class 2; Z68.38 Body mass index [BMI] 38.0-38.9, adult | CPT/HCPCS: 96127; 99212 ==

== ENCOUNTER 2024-04-11 10:45 | Outpatient (REF) | payer OTHER, SELFPAY ==
[2024-04-11 11:32] LABS: Hematocrit 40.1 % (37.0-47.0); Hemoglobin 12.9 g/dl (12.0-16.0); Mean Corpuscular HGB Conc 32.2 g/dl (31.0-35.0); Mean Corpuscular Hemoglobin 25.5 pg (27.0-33.0); Mean Corpuscular Volume 79.2 fL (80.0-98.0); Mean Platelet Volume 10.9 fL (9.4-12.3); Platelet Count 285 X10*3/uL (160-400); Red Blood Count 5.06 X10*6/uL (4.20-5.50); Red Cell Distribution Width 14.1 % (11.0-16.0); White Blood Count 6.1 X10*3/uL (4.8-10.8)
[2024-04-11 12:36] LABS: Cholesterol 200 mg/dL (<200); HDL Cholesterol 41 mg/dL (>40); Iron 35 mcg/dL (30-160); LDL Cholesterol Calculated 145 mg/dL (<100); Percent Iron Saturation 12 % (15-50); Total Iron Binding Capacity 304 mcg/dL (228-428); Triglycerides 72 mg/dL (<150); Unsaturated Iron Binding 269 ug/dL
[2024-04-11 12:49] LABS: TSH reflex Free T4 1.04 uIU/mL (0.32-4.0)
== END 2024-04-11 10:46 | disposition home or self-care (01) ==
LOC: HO.LAB 10:45
PROVIDERS: PCP Nurse Practitioner Family; Visit Provider Nurse Practitioner Family
DX: E78.5 Hyperlipidemia, unspecified (principal); E66.812 Obesity, class 2; E66.01 Morbid (severe) obesity due to excess calories; Z68.38 Body mass index [BMI] 38.0-38.9, adult; D50.9 Iron deficiency anemia, unspecified
CPT/HCPCS: 36415; 80061; 83540; 84443; 85027

== ENCOUNTER 2024-05-06 12:38 | Outpatient (AMB) | payer OTHER, SELFPAY ==
--- NOTE | 2024-05-06 11:09 | A.OFFPC_ITS ---
Intake Visit Reasons: telehealth to review labs. Mining Professionals Required: No Allergies No Known Allergies Allergy (Verified 05/06/24 16:47) Medication List - Last Reconciled 05/06/24 by ANDRESSA Garcia ferrous sulfate 325 mg PO DAILY Tobacco use date assessed: 07/01/23 Dental Screening Dental Screen Date: 07/01/23 HPI HPI Comments History of Present Illness Details History of Present Illness - The patient is a 23-year-old female w ith concerns regarding iron deficiency anemia. Her initial diagnosis was made last November, with persistence of low blood count and low iron levels noted in subsequent tests. She is not taking iron supplements. Did not know she was supposed to - The patient reports new onset of diffi culty concentrating at work. This lack of focus is distressing, affecting her emotional state and causing significant frustration. - The patient has generalized anxiety di sorder managed through virtual counseling sessions with Arya Arroyo, experiencing variability in symptom severity. Notably, her anxiety has contributed to an emotional response to difficulties with concentration. - Regarding hypercholesterolemia, the pa juana's cholesterol remains elevated. She continues dietary management, delayed by appointment scheduling issues with her lead database developer. First appt 06/08 May consult somewhere else that can see her sooner - The patient's thyroid function was kwesi luated and was normal, eliminating it as a contributing factor to her symptoms. Results Labs from 04/11/2024 show low MCV and low MCH otherwise normal CBC, low % iron at 12 otherwise normal iron profile, total cholesterol 200, LDL 145, HDL 41 and triglycerides 72, normal TSH Assessment and Plan 1. Iron Deficiency Anemia: The patient's iron deficiency anemia is being addressed by prescribing iron supplements. Issues concerning the prior lapse in medication have been identified and rectified by coordinating with the pharmacy for medication availability. The patient's response to this treatment will be mo nitored with repeat laboratory tests in three months. 2. Hypercholesterolemia: Dietary modific ations continue to be a part of the management plan for the patient's hypercholesterolemia. Resolution of appointment scheduling issues with the lead database developer has been prioritized, and the effectiveness of these dietary changes will be reassessed with future lipid profiles. If able to be seen sooner somwhere else, asked she send me info via portal and i will update referral 3. Generalized Anxiety Disorder: Ongoing management of the patient's anxiety through virtual counseling is in place. The successful management of anemia may additionally benefit the patient?s focus and cognitive function, indirectly assisting anxiety management. Requested STD screen at next lab draw; denies active sx. CPe scheduled 06/10 agreed to move to end of July (08/06/24 at 330pm) with labs done 1 week before to coordinate her care. Telehealth Attestation The consultation was conducted through a virtual platform. All information documented above is based on the direct interaction during the telehealth session and accurately reflects the patient's medical condition and management plan discussed during this visit. The patient has been explained that this is an interactive (audio/video) telehealth encounter and what that consists of. The patient understands and wishes to proceed. [employer] platform was used. Total time spent caring for the patient today was 22 minutes. This includes time spent before the visit reviewing the chart, time spent during the visit, and time spent after the visit on documentation, reviewing laboratory results, diagnostic imaging, medications, performing a medically necessary evaluation, counseling on diagnoses, care coordination, ordering appropriate tests, ordering appropriate medications, review of tests performed by other providers, reporting test results with the patient, communication with other healthcare providers. [facility] Medical History (Updated 03/17/24 @ 14:55 by Tatiana Stewart [facility]) H/O nephrolithotomy with removal of calculi Surgical History (Updated 07/01/23 @ 16:17 by Lexie Parker CMA) No pertinent past surgical history Family History (Updated 07/01/23 @ 16:17 by Lexie Parker CMA) Mother Hypertension Diabetes Social History (Updated 07/01/23 @ 16:19 by Lexie Parker CMA) Household Members: Family Housing: Apartment 75 years or older and lives alone: No Alcohol intake: current Alcohol intake frequency: holidays/special occasions only Patient Tobacco Use Status: Never used Tobacco e-Cigarette/Vaping Use: Never Used service: No Current occupational status: employed Current occupation: [employer] Current occupational exposures/hazards: No Cognitive needs: No Hearing needs: No Vision needs: Yes (wears glasses ) Questionnaire Thrive Questionnaire Date Thrive assessed: 03/16/24 MARCEL-7 AMB Questionnaire MARCEL-7 Date MARCEL - 7 assessed: 03/16/24 Source: Developed by Drs. Ubaldo Pierre, Rylee Almazan, Cuate Lerma and colleagues, with an educational ricky from [employer]. Physical exam (Primary Care) Tobacco/Smoking Status: Tobacco use Status Tobacco use date assessed 07/01/23 05/06/24 11:12 Patient Tobacco Use Status Never used Tobacco 05/06/24 11:12 e-Cigarette/Vaping Use Never Used 05/06/24 11:12 Thrive Assessment: Date of Thrive Assessment Date Thrive assessed 03/16/24 05/06/24 11:12 Telehealth Telehealth Telehealth Platform: Telephone Location of provider rendering services: practice address Location of patient: address on file Patient Identification confirmed using: Name, : Yes Telehealth method: voice only Patient verbally consented to treatment: Yes Patient verbally consented to billing insurance company: Yes Patient informed of any privacy concerns related to visit: Yes Minutes spent on Phone/Video with Pt.: 18 Results Reviewed Results Reviewed: RUN: 05/06/24 1531 PAGE 1 [facility] [address] [place] [id number] Broker In Charge: Neri Ruiz M.D. Specimen Inquiry Name: Kimberly Domingo Age/Sex: 23/F : 2000 Unit#: [id number] Attend Dr: Tatiana Stewart Re04/11/24 Status: DEP REF Location: .LAB Disch: SPEC : [id number] ARACELI: 04/11/24 STATUS: COMP REQ : [id number] RECD: 04/11/[address]: Tatiana StewartPKarol COMP: 04/11/24 ENTERED: 04/11/[address]: ORDERED: CBC No Diff Test Result Flag Reference WBC 6.1 4.8-10.8 X10*3/uL RBC 5.06 4.20-5.50 X10* 6/uL HGB 12.9 12.0-16.0 g/dl HCT 40.1 37.0-47.0 % MCV 79.2 L 80.0-98.0 fL MCH 25.5 L 27.0-33.0 pg MCHC 32.2 31.0-35.0 g/dl RDW 14.1 11.0-16.0 % PLT 285 160-400 X10*3/uL MPV 10.9 9.4-12.3 fL NRBC Pct Auto 0.0 0.0-0.2 /100WBC NRBC Abs Auto 0.000 0.0-0.012 X10*3/ RUN: 05/06/24 1532 PAGE 1 [facility] [address] [place] [id number] Broker In Charge: Neri Ruiz M.D. Specimen Inquiry Name: Kimberly Domingo Age/Sex: 23/F : 2000 Unit#: [id number] Attend Dr: Tatiana Stewart Re04/11/24 Status: DEP [facility] Disch: SPEC : [id number] ARACELI: 04/11/24 STATUS: COMP REQ : [id number] RECD: 04/11/24 [facility] DR: Tatiana Stewart COMP: 04/11/24-1248 ENTERED: 04/11/24-[address]: ORDERED: IRON PROF, Lipid Panel, TSH Rflx Test Result Flag Reference Iron 35 30-160 mcg/dL TIBC 304 228-428 mcg/dL Saturation 12 L 15-50 % UIBC 269 ug/dL Triglyceride 72 <150 mg/dL Desirable Triglyceride: less than 150 mg/dL Borderline High Triglyceride 150-199 mg/dL High Triglyceride: 200-499 mg/dL Very High Triglyceride: greater than or equal to 5OO mg/dL Cholesterol 200 H <200 mg/dL Desirable Cholesterol: less than 200 mg/dL Borderline High Cholesterol: 200-239 mg/dL High Cholesterol: greater than 239 mg/dL LDL Calculated 145 H <100 mg/dL Desirable LDL: less than 100 mg/dL Near Optimal/Above Optimal LDL: 110-129 mg/dL Borderline High LDL: 130-159 mg/dL High LDL: 160-189 mg/dL Very High LDL: greater than or equal to 190 mg/dL HDL 41 >40 mg/dL Desirable HDL: greater than 40 mg/dL Note: This HDL assay may give artificially low results in patients with liver disease. TSH 1.04 0.32-4.0 uIU/mL Coding Level of Care Code Tele Est Pt Level 4 (02287) Complex EM visit Add On G2211 Diagnoses Iron deficiency anemia, unspecified iron deficiency anemia type D50.9 Iron deficiency anemia type: unspecified iron deficiency Moderate mixed hyperlipidemia not requiring statin therapy E78.2 Hyperlipidemia type: moderate mixed hyperlipidemia not requiring statin therapy MARCEL (generalized anxiety disorder) F41.1 Moderate episode of recurrent major depressive disorder F33.1 Major depression episode severity: moderate Assessment & Plan Assessment & Plan (1) Iron deficiency anemia: Code(s): D50.9 - Iron deficiency anemia, unspecified Category: Medical Qualifiers: Iron deficiency anemia type: unspecified iron deficiency Qualified Code(s): D50.9 - Iron deficiency anemia, unspecified (2) Hyperlipidemia: Code(s): E78.5 - Hyperlipidemia, unspecified Category: Medical Qualifiers: Hyperlipidemia type: moderate mixed hyperlipidemia not requiring statin therapy Qualified Code(s): E78.2 - Mixed hyperlipidemia (3) MARCEL (generalized anxiety disorder): Code(s): F41.1 - Generalized anxiety disorder Category: Medical (4) MDD (major depressive disorder), recurrent episode: Code(s): F33.9 - Major depressive disorder, recurrent, unspecified Category: Medical Qualifiers: Major depression episode severity: moderate Qualified Code(s): F33.1 - Major depressive disorder, recurrent, moderate Plan . Orders: Orders Lipid Panel 3 Months D50.9 - Iron deficiency anemia, unspecified, E78.2 - Mixed hyperlipidemia, F33.1 - Major depressive disorder, recurrent, moderate HIV Ab/Ag 3 Months Z11.3 - Encounter for screening for infections with a predominantly sexual mode of transmission Syphilis Screen 3 Months Z11.3 - Encounter for screening for infections with a predominantly sexual mode of transmission CT NG by PCR 3 Months Z11.3 - Encounter for screening for infections with a predominantly sexual mode of transmission Complete Blood Count no Diff 3 Months D50.9 - Iron deficiency anemia, unspecified, E78.2 - Mixed hyperlipidemia, F33.1 - Major depressive disorder, recurrent, moderate IRON PROFILE 3 Months D50.9 - Iron deficiency anemia, unspecified, E78.2 - Mixed hyperlipidemia, F33.1 - Major depressive disorder, recurrent, moderate Ferritin 3 Months D50.9 - Iron deficiency anemia, unspecified, E78.2 - Mixed hyperlipidemia, F33.1 - Major depressive disorder, recurrent, moderate Medications: Refilled ferrous sulfate Take one tablet daily, reduce for GI side effects. 325 mg PO DAILY 90 tabs 2RF
--- OUTSIDE RECORDS SUMMARY | 2024-05-06 15:23 | XMS_ITS | Encounter Summary ---
Author Organization [facility] Address [address] [place] [phone] Phone Care Team Providers Care Informix Developer Name Role Phone Jacque Palmer MD Primary Care Provider [phone] Encounter Details Date Type Department Care Team (Late st Contact Info) Description 03/30/2011 Documentation [facility] [place] Family Medicine [address] [place] [address] Family Medicine, Physician [address] [place], [place] [address] Social History Tobacco Use Types Packs/Day Years Used Date Smoking Tobacco: Never Assessed Comments Unknown Sex and Gender Information Value Date Recorded Sex Assigned at Not on file Legal Sex Female 5:13 PM EDT Gender Identity Not on file Sexual Orientation Not on file documented as of this encounter Plan of Treatment Not on file documented as of this encounter Visit Diagnoses Not on filedocumented in this encounter Care Teams Informix Developer Relationship Specialty Start Date End Date Jacque Palmer MD [address] [place] [address] PCP - General Pediatrics 04/08/20 10/15/22 documented as of this encounter
--- OUTSIDE RECORDS SUMMARY | 2024-05-06 15:23 | XMS_ITS | Encounter Summary ---
Author Organization [facility] Address [address] [place] [phone] Phone Care Team Providers Care Surgical Instrument Maker Name Role Phone Jacque Palmer MD Primary Care Provider [phone] Encounter Details Date Type Department Care Team (Late st Contact Info) Description 12/24/2014 Documentation [facility] [place] [address] [place], [place] [id number] Family Medicine, Physician [address] [place] [address] Social History Tobacco Use Types Packs/Day Years [...] on filedocumented in this encounter Care Teams Surgical Instrument Maker Relationship Specialty Start Date End Date Jacque Palmer MD [address] [facility] [place] [address] PCP - General Pediatrics 04/08/20 10/15/22 documented as of this encounter
--- OUTSIDE RECORDS SUMMARY | 2024-05-06 15:23 | XMS_ITS | Encounter Summary ---
Author Organization [facility] Address [address] [place] [phone] Phone Care Team Providers Care Sales Specialist Name Role Phone Jacque Palmer MD Primary Care Provider [phone] Encounter Details Date Type Department Care Team (Late st Contact Info) Description 10/25/2016 Conversion Encounter [facility] [place] [address] [place] [address] Social History Tobacco Use Types Packs/Day Years Used Date Smoking Tobacco: Never Comments:Never smoker Comments Unknown Sex and Gender Information Value Date Recorded Sex Assigned at Not on file Legal Sex Female 5:13 PM EDT Gender Identity Not on file Sexual Orientation Not on file documented as of this encounter Plan of Treatment Not on file documented as of this encounter Visit Diagnoses Not on filedocumented in this encounter Care Teams Sales Specialist Relationship Specialty Start Date End Date Jacque Palmer MD [address] [place] [address] PCP - General Pediatrics 04/08/20 10/15/22 documented as of this encounter
--- OUTSIDE RECORDS SUMMARY | 2024-05-06 15:23 | XMS_ITS | Encounter Summary ---
Author Organization [facility] Address [address] [place] [phone] Phone Care Team Providers Care Deputy K 9 Name Role Phone Jacque Palmer MD Primary Care Provider [phone] Encounter Details Date Type Department Care Team (Late st Contact Info) Description 01/29/2014 Documentation [facility] [place] Family Medicine [address] [place] [address] Family Medicine, Physician [address] [place], [place] [address] Social History Tobacco Use Types Packs/Day Years [...] on filedocumented in this encounter Care Teams Deputy K 9 Relationship Specialty Start Date End Date Jacque Palmer MD [address] [place] [address] PCP - General Pediatrics 04/08/20 10/15/22 documented as of this encounter
--- OUTSIDE RECORDS SUMMARY | 2024-05-06 15:23 | XMS_ITS | Encounter Summary ---
Author Organization [facility] Address [address] [place] [address] Phone Care Team Providers Care Toolman Name Role Phone Jacque Palmer MD Primary Care Provider [phone] Encounter Details Date Type Department Care Team (Late st Contact Info) Description 07/25/2010 Documentation [facility] [place] [address] [place] [address] Family Medicine, Physician [address] [place], [place] [address] Social History Tobacco Use Types Packs/Day Years [...] on filedocumented in this encounter Care Teams Toolman Relationship Specialty Start Date End Date Jacque Palmer MD [address] [facility] [place] [address] PCP - General Pediatrics 04/08/20 10/15/22 documented as of this encounter
--- OUTSIDE RECORDS SUMMARY | 2024-05-06 15:23 | XMS_ITS | Encounter Summary ---
Author Organization [facility] Address [address] [place] [address] Phone Care Team Providers Care Superintendent Compressor Stations Name Role Phone Jacque Palmer MD Primary Care Provider [phone] Encounter Details Date Type Department Care Team (Late st Contact Info) Description 04/14/2014 Documentation [facility] [place] Medicine [address] [place] [address] Family Medicine, Physician [address] [place], [place] [phone] Social History Tobacco Use Types Packs/Day Years [...] on filedocumented in this encounter Care Teams Superintendent Compressor Stations Relationship Specialty Start Date End Date Jacque Palmer MD [address] [place] [place] [address] PCP - General Pediatrics 04/08/20 10/15/22 documented as of this encounter
--- OUTSIDE RECORDS SUMMARY | 2024-05-06 15:23 | XMS_ITS | Clinical Summary ---
Author Organization [facility] Address [address] [place] [address] Phone Care Team Providers Care Wool Washer Feeder Name Role Phone Unavailable Primary Care Provider Unavailabl e Allergies No known active allergies Medications ibuprofen 200 MG tablet Take 200 mg by mouth every 6 hours as needed. Active Active Problems Problem Noted Date Diagnosed Date History of COVID-19 06/30/2020 Overview (06/30/2020): 01/28 dx'ed - tested at [facility]. Other hemorrhoids 03/01/2020 Influenza vaccination declined 02/03/2019 Irritable bowel syndrome with constipation 11/20 Elevated anti-tissue transglutaminase (tTG) IgA level 10/31/2017 Slow transit constipation 10/01/2017 Immunizations Immunization Administration Dates Next Due DTaP 5 11/20/2004, 3,06/15/2002,05/15,2000 H1N1 03/24/2009,02/14/2009 HPV, Quadrivalent 07/03/2013,11/26/2011,09/21/19 12 Hep A, ped/adol 01/26/2014,07/03/2013 Hep B, ped/adol 2000,2000,2000 Hib (HbOC) 06/15/2002, 3,2000,08/07 IPV 11/20/2004, 1,2000,08/07 Influenza Split 11/26/2011,05/16/2010 Influenza, injectable, quadrivalent 12/23/2015,1 03/28/2013 Influenza, injectable, quadr ivalent, preservative free 06/07/2017,12/01/2014 Influenza, injectable, trivalent 009,03/02/2008,01/26/2008,02/19 MMR 11/20/2004,09/08/2001 Meningococcal Conj (Menactra) MCV4P 06/07/2017,0 09/21/2011 Pneumococcal Conjugate 01/02/2001,2000, Tdap 09/21/2011 Varicella 01/16/2007,05/15/2002 Family History Medical History Relation Name Comments No Known Problems Brother No Known Problems Father No Known Problems Mother Maris Quezada Relation Name Status Comments Brother Alive Brother: Asthma Father Mother Maris Quezada Alive Mother: Di abetes mellitus type 1 Other No family histo ry of Developmental dislocation of hip, No family history of Sudden /LA under age 55, No family history of Deafness, No family history of Migraines, No family history of ADD/ADHD, No family history of Strabismus/amblyopia, No family history of Autism, No family history of Seizure disorder, No family history of Elevated cholesterol, No family history of Obesity Social History Tobacco Use Types Packs/Day Years Used Date Smoking Tobacco: Never Comments:Never smoker Alcohol Use Standard Drinks/Week Comments No 0 (1 standard drink = 0.6 oz pur e alcohol) Hunger/Food Answer Date Recorded In the last 12 months, did y ou or your family ever eat less than you felt you should because there wasn't enough money for food? No 02/03/2019 Stable Housing Answer Date Recorded Are you worried that in the next 2 months you may not have stable housing? No 02/03/2019 Transportation Concerns Answer Date Rec orded In the last 12 months, have you or your family ever had to go without healthcare because you didn't have a way to get there? No 02/03/2019 Hazards in Home Answer Date Recorded Think about the place you li ve. Do you have problems with any of the following? Pests (mice or roaches), mold, no/not working smoke detectors, water leaks, no window guards. No 2018 Financing Utilities Answer Date Recorde d In the last 12 months, has t he electric, gas, oil, or water company threatened to shut off your services in your home? No 02/03/2019 Safety at Home Answer Date Recorded Are you or your family worried about feeling saf e in your home? No 02/03/2019 Outside Support Answer Date Recorded Do you feel that you need mo re support from other people or programs to help you care for yourself or your family? No 02/03/2019 Understanding Health Concerns Answer Da te Recorded Do you need help understandi ng your or your child's healthcare needs (diagnosis, medications, plan, etc.)? No 02/03/2019 Financing Health Concerns Answer Date R ecorded In the last 12 months, was t here a time when your child needed to see a doctor or get medications or supplies but could not because of cost? No 02/03/2019 Missing School or Work Answer Date Len rded Did you or your child miss s chool or work because of a health problem that could have been avoided? No 02/03/2019 Comments No Sex and Gender Information Value Date Recorded Sex Assigned at Not on file Legal Sex Female 5:13 PM EDT Gender Identity Not on file Sexual Orientation Not on file Last Filed Vital Signs Vital Sign Reading Time Taken Comments Blood Pressure 115/79 06/30/2020 11:14 AM EDT Pulse 83 06/30/2020 11:14 AM EDT Temperature 36.1 ??C (96.9 ??F) 06/30/2020 11:14 AM E DT Respiratory Rate 16 02/03/2019 9:01 AM EST Oxygen Saturation - - Inhaled Oxygen Concentration - - Weight 78.5 kg (173 lb) 06/30/2020 11:14 AM EDT Height 154.9 cm (5' 1 ) 06/30/2020 11:14 AM EDT Body Mass Index 32.69 06/30/2020 11:14 AM EDT Plan of Treatment Health Maintenance Due Date Last Done Comments Men B Vaccine (1 of 2 - Standard) 2016 DTaP,Tdap,and Td Vaccines (7 - Td or Tdap) 09/20/2021 09/21/2011, 11/20/2004, 01/07/2003, Additional history exists Influenza Vaccines (#1) 2023 06/08/19 18, 12/23/2015, 12/01/2014, Additional history exists COVID-19 Vaccine ( season) 2023 07/08/2021, 06/17/2021 Hepatitis B Vaccines Completed 2000, 2000, 2000 Pneumococcal Vaccine Aged Out 01/02/2001, 2000, 2000 No longer eligible based on patient's age to complete this topic HIB Vaccines Completed 06/15/2002, 09/2002, 2000, Additional history exists IPV Vaccines Completed 11/20/2004, 12/10, 2000, Additional history exists MMR Vaccines Completed 11/20/2004, 09/08/2001 Varicella Vaccines Completed 01/16/2007, 05/15/2002 HPV Vaccines Completed 07/03/2013, 11/09, 09/21/2011 Hepatitis A Vaccines Completed 01/26/2014, 07/04/19 14 Meningococcal Vaccine Completed 06/07/2017, 012 Procedures * Due to [facility] law, this organization might not be sharing sensitive test results. Procedure Name Priority Date/Time Associated Diagnosis Comments CHLAMYDIA AND GONORRHEA, AMPLIFIED Routine 06/30/2020 11:26 AM EDT Screening examination for bacterial and spirochetal disease from Last 3 Months or Most Recently Relevant to Health Maintenance Results * Due to [place] [employer] law, this organization might not be sharing sensitive test results. * Chlamydia and Gonorrhoea, Amplified (06/30/2020 11:26 AM EDT) Chlamydia Trachomatis, DNA Probe NEGATIVE (NEG) [facility] Comment: No Chlamydia Trachomatis RNA detected in this patient's sample ? (REFERENCE RANGE/NORMAL VALUE: NOT DETECTED) ? Note: This test uses chemist steroids- mediated amplification method to detect rRNA from C. Trachomatis URINE GC AMP PROBE NEGATIVE (NEG) [facility] Comment: No Neisseria Gonorrhoeae RNA detected in this patient's sample ? (REFERENCE RANGE/NORMAL VALUE: NOT DETECTED) ? NOTE: This test uses chemist steroids-mediated amplification method to detect rRNA from N.Gonorrhoeae. A negative result does not preclude infection. In the case of a negative urine result, testing of an endocervical(female) or urethral (male) specimen is recommended if there is high clinical suspicion of infection. Due to very high sensitivity of Nucleic Acid Amplification Test, false positive results may occur. Therefore, specimen handling is extremely important. In patients in whom the disease is unlikely, additional sample for testing should be considered after an initial positive result. The performance characteristics of this test have not been evaluated in children. The Aptima Combo2 assay is not intended for the evaluation of suspected sexual abuse or for other medico-legal indications. The ordering provider should assess if the patient had consensual sex without risk of sexual abuse. Consult the [facility] if needed. Contact phone number . Therapeutic failure or success cannot be determined with the Aptima Combo2 assay since nucleic acid may persist following appropriate antimicrobial therapy. The Centers for Disease Control and Prevention (CDC) recommends confirmatory retesting using culture or a different nucleic acid amplification test when positive results occur, if indicated. Testing performed or reported by [facility], a Service of [facility], [address] [place] [address] Khadar Carlos MD, General Warehouse Associate Urine 06/30/2020 11:2 6 AM EDT 06/30/2020 8:19 PM EDT us Jeremie Brooks MD LAB MICROBIOLOGY - GENERAL ORDER REA Final Result [facility] from Last 3 Months or Most Recently Relevant to Health Maintenance Insurance [facility] NON PCC
--- OUTSIDE RECORDS SUMMARY | 2024-05-06 15:23 | XMS_ITS | Encounter Summary ---
Author Organization [facility] Address [address] [place] [address] Phone Care Team Providers Care General Lithographic Worker Name Role Phone Jacque Palmer MD Primary Care Provider [phone] Encounter Details Date Type Department Care Team (Late st Contact Info) Description 03/30/2011 Documentation [facility] [place] Family Medicine [address] [place] [address] Family Medicine, Physician [address] [place], [place] [id number] Social History Tobacco Use Types Packs/Day Years [...] on filedocumented in this encounter Care Teams General Lithographic Worker Relationship Specialty Start Date End Date Jacque Palmer MD [address] [facility] [place] [address] PCP - General Pediatrics 04/08/20 10/15/22 documented as of this encounter
--- OUTSIDE RECORDS SUMMARY | 2024-05-06 15:23 | XMS_ITS | Encounter Summary ---
Author Organization [facility] Address [address] [place] [address] Phone Care Team Providers Care Board Catcher Name Role Phone Jacque Palmer MD Primary Care Provider [phone] Encounter Details Date Type Department Care Team (Late st Contact Info) Description 09/14/2015 Documentation [facility] [place] Family Medicine [address] [place], [place] [id number] Family Medicine, Physician [address] [place], [place] [address] Social History Tobacco Use Types Packs/Day Years [...] on filedocumented in this encounter Care Teams Board Catcher Relationship Specialty Start Date End Date Jacque Palmer MD [address] [place] [address] PCP - General Pediatrics 04/08/20 10/15/22 documented as of this encounter
== END 2024-05-06 17:05 | disposition home or self-care (01) ==
LOC: HO.HMCFM 12:38
PROVIDERS: PCP Nurse Practitioner Family; Visit Provider Nurse Practitioner Family
DX: D50.9 Iron deficiency anemia, unspecified (principal); F33.1 Major depressive disorder, recurrent, moderate; E78.2 Mixed hyperlipidemia; F41.1 Generalized anxiety disorder

== ENCOUNTER 2024-06-08 14:24 | Outpatient (AMB) | payer OTHER, SELFPAY ==
--- NOTE | 2024-06-08 14:31 | A.OFFVIS_ITS ---
VS Expanded 06/08/24 14:59 Height 5 ft 1 in Weight 196 lb BMI 37.0 Intake Visit Reasons: Hyperlipidemia Allergies No Known Allergies Allergy (Verified 05/06/24 16:47) Nutrition Presentation Details: Pt presents for MNT for hyperlipidemia Reports typically having one meal a day most of the days b: bagel/cheese/ham snack: cheese/nuts lunch: bagel/cheese 7pm : rice/meat/beans food frequency fruits: 0-1 veg: none dairy: 1-2 cheese/milk/ice cream/yogurt fish: 0-1 /m water: 12 oz/d physical activity: ETOH: occ 2-3 smoking: denies mvi - started to take iron supplement couple of weeks ago denies constipation/diarrhea BS Monitoring Most Recent Diabetes Results: Microalb/Creat Ratio 3.4 ug/mg cr (<30) 11/23/23 Cholesterol 200 mg/dL (<200) H 04/11/24 HDL Cholesterol 41 mg/dL (>40) 04/11/24 Triglycerides 72 mg/dL (<150) 04/11/24 Creatinine 0.73 mg/dL (0.5-1.4) 11/23/23 Blood Urea Nitrogen 13 mg/dL (9-16) 11/23/23 Sodium 139 mmol/L (135-145) 11/23/23 Potassium 4.4 mmol/L (3.3-5.1) 11/23/23 Chloride 108 mmol/L (96-108) 11/23/23 Carbon Dioxide 25 mmol/L (22-29) 11/23/23 Calcium 9.5 mg/dL (8.4-10.2) 11/23/23 AST 10 U/L (5-31) 11/23/23 ALT 17 U/L (0-31) 11/23/23 Total Protein 7.2 g/dL (6.5-8.0) 11/23/23 Albumin 3.9 g/dL (3.5-5.0) 11/23/23 DHA-Aotxphq-Ti.Jeor Equation Height: 5 ft 1 in Weight: 196 lb Resting Metabolic Rate: 1577.45 Calculated Activity Level: Sedentary Calories Needed to Maintain Weight: 1892.94 Diagnosis Nutrition problem #1: altered nutrition labs As related to (etiology) #1: diagnosis As evidenced by (sign/symptom) #1: knowledge deficit of diet PFSH Medical History (Updated 03/17/24 @ 14:55 [facility] H/O nephrolithotomy with removal of calculi Surgical History (Updated 07/01/23 @ 16:17 by Lexie Parker CMA) No pertinent past surgical history Family History (Updated 07/01/23 @ 16:17 by Lexie Parker CMA) Mother Hypertension Diabetes Social History (Updated 07/01/23 @ 16:19 by Lexie Parker CMA) Household Members: Family Housing: Apartment 75 years or older and lives alone: No Alcohol intake: current Alcohol intake frequency: holidays/special occasions only Patient Tobacco Use Status: Never used Tobacco e-Cigarette/Vaping Use: Never Used service: No Current occupational status: employed Current occupation: [email or web address] Current occupational exposures/hazards: No Cognitive needs: No Hearing needs: No Vision needs: Yes (wears glasses ) Assessment & Plan Assessment & Plan (1) Hyperlipidemia: Code(s): E78.5 - Hyperlipidemia, unspecified Category: Medical Qualifiers: Hyperlipidemia type: moderate mixed hyperlipidemia not requiring statin therapy Qualified Code(s): E78.2 - Mixed hyperlipidemia Plan: Wt: 89 Kg ( 06/02 ) Est kcal needs as per MSJ: 1900 (40% carb, 30% protein/fat) Est fluid needs as per 25-30 ml/d: 2700 Est prot per day as per 1 g/kg bw: 90 Recommend fiber intake : 8-10 g per day and gradually increase to 25-28 g per day for women and 35-38 g for men or as tolerated Recommend sodium intake per day : less than 2000 mg Educated patient on: ( R = reviewed V = verbalizes understanding N/R = needs review N/A = not applicable * Food sources of carbohydrate, adequate serving sizes and its role in various health conditions: R * Differences between complex carbohydrates a simple carbohydrates, role of fiber in diet: R * Lean protein sources of foods: R * Differences between types of fats and role in diet (mono on saturated fat fatty acids, saturated fatty acids, trans fats): R * Food sources of sodium in salt and healthy modifications for heart health in kidney health: R V R/V * Vitamins and minerals: R V N/R * Healthy plate method concept: R V N/R * Physical activity: Benefits a precaution: R V N/R Patient Instructions: Choose low fat cooking methods Include fiber rich foods see 2000 charles meal plan low in saturated fat and high fiber Coding Level of Care Code Nutr Indiv Intake (04374) Diagnoses Moderate mixed hyperlipidemia not requiring statin therapy E78.2 Hyperlipidemia type: moderate mixed hyperlipidemia not requiring statin therapy Time Spent (min) 30
--- OUTSIDE RECORDS SUMMARY | 2024-06-08 16:17 | XMS_ITS | Encounter Summary ---
Author Organization [facility] Address [address] [place] [address] Phone Care Team Providers Care Interface Engineer Name Role Phone Jacque Palmer MD Primary Care Provider [phone] Encounter Details Date Type Department Care Team (Late st Contact Info) Description 03/30/2011 Documentation [facility] [place] [address] [place] [address] Family Medicine, Physician [address] [place], [place] [address] Social History Tobacco Use Types Packs/Day Years [...] on filedocumented in this encounter Care Teams Interface Engineer Relationship Specialty Start Date End Date Jacque Palmer MD [address] [facility] [place] [address] PCP - General Pediatrics 04/08/20 10/15/22 documented as of this encounter
--- OUTSIDE RECORDS SUMMARY | 2024-06-08 16:17 | XMS_ITS | Encounter Summary ---
Author Organization [facility] Address [address] [place] [address] Phone Care Team Providers Care Security Systems Integrator Name Role Phone Jacque Palmer MD Primary Care Provider [phone] Encounter Details Date Type Department Care Team (Late st Contact Info) Description 07/25/2010 Documentation [place] Family Medicine [address] [place] [address] Family Medicine, Physician [address] [place], [place] [address] Social History Tobacco Use Types Packs/Day Years [...] on filedocumented in this encounter Care Teams Security Systems Integrator Relationship Specialty Start Date End Date Jacque Palmer MD [address] [facility] [place] [address] PCP - General Pediatrics 04/08/20 10/15/22 documented as of this encounter
--- OUTSIDE RECORDS SUMMARY | 2024-06-08 16:17 | XMS_ITS | Encounter Summary ---
Author Organization [facility] Address [address] [place] [address] Phone Care Team Providers Care Metal Roofing Mechanic Name Role Phone Jacque Palmer MD Primary Care Provider [phone] Encounter Details Date Type Department Care Team (Late st Contact Info) Description 04/14/2014 Documentation [facility] [place] Family Medicine [address] [place] [address] Family Medicine, Physician [address] [place], [place] [address] Social History Tobacco Use Types Packs/Day Years [...] on filedocumented in this encounter Care Teams Metal Roofing Mechanic Relationship Specialty Start Date End Date Jacque Palmer MD [address] [place] [address] PCP - General Pediatrics 04/08/20 10/15/22 documented as of this encounter
--- OUTSIDE RECORDS SUMMARY | 2024-06-08 16:17 | XMS_ITS | Encounter Summary ---
Author Organization [facility] Address [address] [place] [address] Phone Care Team Providers Care Mc Kay Machine Operator Name Role Phone Jacque Palmer MD Primary Care Provider [phone] Encounter Details Date Type Department Care Team (Late st Contact Info) Description 10/25/2016 Conversion Encounter [facility] [place] [address] [place] [address] Social History Tobacco Use Types Packs/Day Years [...] on filedocumented in this encounter Care Teams Mc Kay Machine Operator Relationship Specialty Start Date End Date Jacque Palmer MD [address] [place] [address] PCP - General Pediatrics 04/08/20 10/15/22 documented as of this encounter
--- OUTSIDE RECORDS SUMMARY | 2024-06-08 16:17 | XMS_ITS | Encounter Summary ---
Author Organization [facility] Address [address] [place] [address] Phone Care Team Providers Care Director Of Communications Name Role Phone Jacque Palmer MD Primary Care Provider [phone] Encounter Details Date Type Department Care Team (Late st Contact Info) Description 01/29/2014 Documentation [facility] [place] [address] [place] [address] Family Medicine, Physician [address] [place], [place] [address] Social History Tobacco Use Types Packs/Day Years [...] on filedocumented in this encounter Care Teams Director Of Communications Relationship Specialty Start Date End Date Jacque Palmer MD [address] [place] [address] PCP - General Pediatrics 04/08/20 10/15/22 documented as of this encounter
--- OUTSIDE RECORDS SUMMARY | 2024-06-08 16:17 | XMS_ITS | Clinical Summary ---
Author Organization [facility] Address [address] [place] [address] Phone Care Team Providers Care Outpatient Physical Therapist Assistant Name Role Phone Unavailable Primary Care Provider Unavailabl e Allergies No known active allergies Medications ibuprofen 200 MG tablet Take 200 mg by mouth every 6 hours as needed. Active Active Problems Problem Noted Date Diagnosed Date History of COVID-19 06/30/2020 Overview (06/30/2020): 01/28 dx'ed - tested at [facility]. Other hemorrhoids 03/01/2020 Influenza vaccination declined 02/03/2019 [...] of hip, No family history of Sudden /[place] under age 55, No family history of [...] Health Maintenance Due Date Last Done Comments DTaP,Tdap,and Td Vaccines (7 - Td or [...] 07/04/19 14 Meningococcal Vaccine Completed 06/07/2017, 012 Men B Vaccine Aged Out No longer elig ible based on patient's age to complete this topic Procedures * Due to [facility] law, this organization might not be sharing sensitive test results. Procedure Name Priority Date/Time Associated Diagnosis Comments CHLAMYDIA AND GONORRHEA, AMPLIFIED Routine 06/30/2020 11:26 AM EDT Screening examination for bacterial and spirochetal disease from Last 3 Months or Most Recently Relevant to Health Maintenance Results * Due to [place] [employer] law, this organization might not be sharing sensitive test results. * Chlamydia and Gonorrhoea, Amplified (06/30/2020 11:26 AM EDT) Chlamydia Trachomatis, DNA Probe NEGATIVE (NEG) [facility] Comment: No Chlamydia Trachomatis RNA detected in this patient's sample ? (REFERENCE RANGE/NORMAL VALUE: NOT DETECTED) ? Note: This test uses practice or student teacher- mediated amplification method to detect rRNA from C. Trachomatis URINE GC AMP PROBE NEGATIVE (NEG) [facility] Comment: No Neisseria Gonorrhoeae RNA detected in this patient's sample ? (REFERENCE RANGE/NORMAL VALUE: NOT DETECTED) ? NOTE: This test uses practice or student teacher-mediated amplification method to detect rRNA from N.Gonorrhoeae. [...] without risk of sexual abuse. Consult the [facility] if needed. Contact phone number . Therapeutic failure or success cannot be determined with the Aptima Combo2 assay since nucleic acid may persist following appropriate antimicrobial therapy. The Centers for Disease Control and Prevention (CDC) recommends confirmatory retesting using culture or a different nucleic acid amplification test when positive results occur, if indicated. Testing performed or reported by [facility], a Service of [facility], [facility] [place] [address] Khadar Carlos MD, Road Mender Urine 06/30/2020 11:2 6 AM EDT 06/30/2020 8:19 PM EDT Jeremie Brooks MD LAB MICROBIOLOGY - GENERAL ORDER REA Final Result [facility] from Last 3 Months or Most Recently Relevant to Health Maintenance Insurance [facility] NON PCC
--- OUTSIDE RECORDS SUMMARY | 2024-06-08 16:17 | XMS_ITS | Encounter Summary ---
Author Organization [facility] Address [address] [place] [address] Phone Care Team Providers Care Yarder Puncher Name Role Phone Jacque Palmer MD Primary Care Provider [phone] Encounter Details Date Type Department Care Team (Late st Contact Info) Description 12/24/2014 Documentation [facility] [place] Family Medicine [address] [place], [place] [id number] Family Medicine, Physician [address] [place] [address] Social History Tobacco Use Types Packs/Day Years [...] on filedocumented in this encounter Care Teams Yarder Puncher Relationship Specialty Start Date End Date Jacque Palmer MD [address] [place] [address] PCP - General Pediatrics 04/08/20 10/15/22 documented as of this encounter
--- OUTSIDE RECORDS SUMMARY | 2024-06-08 16:17 | XMS_ITS | Encounter Summary ---
Author Organization [facility] Address [address] [place] [address] Phone Care Team Providers Care Retinal Surgeon Name Role Phone Jacque Palmer MD Primary Care Provider [phone] Encounter Details Date Type Department Care Team (Late st Contact Info) Description 09/14/2015 Documentation [facility] [place] Family Medicine [address] [place] [address] Family Medicine, Physician [address] [place], [place] [address] Social History Tobacco Use Types Packs/Day Years [...] on filedocumented in this encounter Care Teams Retinal Surgeon Relationship Specialty Start Date End Date Jacque Palmer MD [address] [facility] [address] PCP - General Pediatrics 04/08/20 10/15/22 documented as of this encounter
--- OUTSIDE RECORDS SUMMARY | 2024-06-08 16:17 | XMS_ITS | Encounter Summary ---
Author Organization [facility] Address [address] [place] [address] Phone Care Team Providers Care Car Manager Name Role Phone Jacque Palmer MD Primary Care Provider [phone] Encounter Details Date Type Department Care Team (Late st Contact Info) Description 03/30/2011 Documentation [facility] [place] Family Medicine [address] [place] [address] Family Medicine, Physician [address] [place], [place] [address] Social History Tobacco Use Types Packs/Day Years [...] on filedocumented in this encounter Care Teams Car Manager Relationship Specialty Start Date End Date Jacque Palmer MD [address] [place] [address] PCP - General Pediatrics 04/08/20 10/15/22 documented as of this encounter
[2024-06-22 22:59] VITALS: BMI 37.0
== END 2024-06-08 15:22 | disposition home or self-care (01) ==
LOC: HO.ENCR 14:25
PROVIDERS: PCP Nurse Practitioner Family; Visit Provider Dietitian, Registered
DX: E78.2 Mixed hyperlipidemia (principal)

== ENCOUNTER → 2024-06-08 14:24 | Outpatient (BNVA) | payer OTHER, SELFPAY | PROVIDERS: PCP Nurse Practitioner Family; Visit Provider Dietitian, Registered | DX: E78.2 Mixed hyperlipidemia (principal); Z71.3 Dietary counseling and surveillance | CPT/HCPCS: 97802 ==

== ENCOUNTER 2024-08-05 07:24 | Outpatient (REF) | payer OTHER, SELFPAY ==
--- OUTSIDE RECORDS SUMMARY | 2024-08-05 07:27 | XMS_ITS | Encounter Summary ---
Author Organization [facility] Address [address] [place] [address] Phone Care Team Providers Care Skid Road Worker Name Role Phone Jacque Palmer MD Primary Care Provider [phone] Encounter Details Date Type Department Care Team (Late st Contact Info) Description 09/14/2015 Documentation [facility] [place] Family Medicine [address] [place] [address] Family Medicine, Physician [address] [place], [place] [phone] Social History Tobacco Use Types Packs/Day Years [...] on filedocumented in this encounter Care Teams Skid Road Worker Relationship Specialty Start Date End Date Jacque Palmer MD 150 [facility] [place] [address] PCP - General Pediatrics 04/08/20 10/15/22 documented as of this encounter
[2024-08-05 07:51] LABS: Hematocrit 42.2 % (37.0-47.0); Hemoglobin 13.6 g/dl (12.0-16.0); Mean Corpuscular HGB Conc 32.2 g/dl (31.0-35.0); Mean Corpuscular Hemoglobin 26.2 pg (27.0-33.0); Mean Corpuscular Volume 81.3 fL (80.0-98.0); Mean Platelet Volume 10.7 fL (9.4-12.3); Platelet Count 242 X10*3/uL (160-400); Red Blood Count 5.19 X10*6/uL (4.20-5.50); Red Cell Distribution Width 14.1 % (11.0-16.0); White Blood Count 6.8 X10*3/uL (4.8-10.8)
[2024-08-05 08:16] LABS: Cholesterol 178 mg/dL (<200); HDL Cholesterol 35 mg/dL (>40); Iron 50 mcg/dL (30-160); LDL Cholesterol Calculated 115 mg/dL (<100); Percent Iron Saturation 16 % (15-50); Total Iron Binding Capacity 318 mcg/dL (228-428); Triglycerides 142 mg/dL (<150); Unsaturated Iron Binding 268 ug/dL
[2024-08-05 08:46] LABS: Ferritin 55 ng/mL (10-122)
[2024-08-05 09:15] LABS: Syphilis Screen Nonreactive (Nonreactive)
[2024-08-05 09:21] LABS: HIV AB/AG Nonreactive (Nonreactive); HIV Num 1 0.06 S/CO (0.00-0.99)
== END 2024-08-05 07:25 | disposition home or self-care (01) ==
LOC: HO.LAB 07:24
PROVIDERS: PCP Nurse Practitioner Family; Visit Provider Nurse Practitioner Family
DX: E78.2 Mixed hyperlipidemia (principal); Z11.3 Encounter for screening for infections with a predominantly sexual mode of transmission; D50.9 Iron deficiency anemia, unspecified; F33.1 Major depressive disorder, recurrent, moderate
CPT/HCPCS: 36415; 80061; 82728; 83540; 85027; 86780; 87389

== ENCOUNTER 2024-08-20 15:12 | Outpatient (AMB) | payer OTHER, SELFPAY ==
--- NOTE | 2024-08-20 15:17 | A.OFFPC_ITS ---
Vital Signs 08/20/24 16:35 Height 5 ft 1 in Weight 191 lb BMI 36.1 Intake Visit Reasons: Follow-up exam Intake Note: Telehealth; she was scheduled for in person visit but was running late due to school; requested telehealth instead Checker And Packer Required: No Allergies No Known Allergies Allergy (Verified 08/20/24 15:18) Medication List - Last Reconciled 08/20/24 by JENNIFER Garcia- chlorhexidine gluconate 0.12% PO PRN ferrous sulfate 325 mg PO DAILY Tobacco use date assessed: 08/20/24 Dental Screening Dental Screen Date: 08/20/24 Did you have a dental visit in the last 12 months?: Yes Did you have a dental problem in the last 6 months where you did not have access to dental care?: No Was dental information given to patient?: Patient has dentist HPI HPI Comments History of Present Illness Details 24 y/o F with obesity, renal stones, GA D, MDD, hemorrhoids, low back pain, anemia, hyperlipidemia, HSV 1 Status post nephrolithotomy Family hx: No changes Health Maintenance: Pap reports UTD 2022 Tdap declined. Specialists: Counseling Chiro Derm Telehealth visit today for routine fu: Iron Def Anemia - resolved on Ferrous sulfate. Tolerating w/o side effects HLD improved w/ lifestyle mods. completed nutrition therapy. + wt loss. MARCEL under control w/o meds; active in counseling. Denies SI/HI. Reviewed active referrals Chiro - did not go; does not have time right now. Ok to close Derm - same as above. Allergy - remains interested, i updated the referral today and sent her info on the portal. Nutrition - services complete. Results Below labs reviewed w/ her today. Plan Cont Ferrous Sulfate Cont counseling Cont life style mods to lower cholesterol. Updated allergy referral. My office to contact her to schedule CPE for 2024. Edu to reach out sooner should she need me. Telehealth Attestation The patient has been explained that this is an interactive (audio/video) telehealth encounter and what that consists of. The patient understands and wishes to proceed. Linkovery platform was used. Total time spent caring for the patient today was 25 minutes. This includes time spent before the visit reviewing the chart, time spent during the visit, and time spent after the visit on documentation, reviewing laboratory results, diagnostic imaging, medications, performing a medically necessary evaluation, counseling on diagnoses, care coordination, ordering appropriate tests, ordering appropriate medications, review of tests performed by other providers, reporting test results with the patient, communication with other healthcare providers. [facility] Medical History (Updated 03/17/24 @ 14:55 by Tatiana Stewart [facility]) H/O nephrolithotomy with removal of calculi Surgical History (Updated 07/01/23 @ 16:17 by Lexie Parker CMA) No pertinent past surgical history Family History (Updated 07/01/23 @ 16:17 by Lexie Parker CMA) Mother Hypertension Diabetes Social History (Updated 07/01/23 @ 16:19 by Lexie Parker CMA) Household Members: Family Housing: Apartment 75 years or older and lives alone: No Alcohol intake: current Alcohol intake frequency: holidays/special occasions only Patient Tobacco Use Status: Never used Tobacco e-Cigarette/Vaping Use: Never Used service: No Current occupational status: employed Current occupation: [employer] Current occupational exposures/hazards: No Cognitive needs: No Hearing needs: No Vision needs: Yes (wears glasses ) Questionnaire Thrive Questionnaire Date Thrive assessed: 03/16/24 MARCEL-7 AMB Questionnaire MARCEL-7 Date MARCEL - 7 assessed: 03/16/24 Source: Developed by Drs. Ubaldo Pierre, Rylee Almazan, Cuate Lerma and colleagues, with an educational ricky from [employer] Physical exam (Primary Care) Tobacco/Smoking Status: Tobacco use Status Tobacco use date assessed 08/20/24 08/20/24 15:18 Patient Tobacco Use Status Never used Tobacco 08/20/24 15:18 e-Cigarette/Vaping Use Never Used 08/20/24 15:18 Thrive Assessment: Date of Thrive Assessment Date Thrive assessed 03/16/24 08/20/24 15:18 Telehealth Telehealth Telehealth Platform: [facility] Location of provider rendering services: practice address Location of patient: address on file Patient Identification confirmed using: Name, : Yes Telehealth method: voice only Patient verbally consented to treatment: Yes Patient verbally consented to billing insurance company: Yes Patient informed of any privacy concerns related to visit: Yes Minutes spent on Phone/Video with Pt.: 13 Results Reviewed Results Reviewed: RUN: 08/20/24 1634 PAGE 1 [facility] [address] [place] [id number] Metalworker: Neri Ruiz M.D. Specimen Inquiry Name: Kimberly Domingo Age/Sex: 24/F : 2000 Unit#: [id number] Attend Dr: Tatiana Stewart Re08/05/24 Status: DEP [facility] Disch: SPEC : [id number] ARACELI: 08/05/24 STATUS: COMP REQ : [id number] RECD: 08/05/24 [facility] DR: Tatiana Stewart METAL BUFFERKarol COMP: 08/05/24 ENTERED: 08/05/[address] [facility] [address]: ORDERED: CBC No Diff Test Result Flag Reference WBC 6.8 4.8-10.8 X10*3/uL RBC 5.19 4.20-5.50 X10*6/uL HGB 13.6 12.0-16.0 g/dl HCT 42.2 37.0-47.0 % MCV 81.3 80.0-98.0 fL MCH 26.2 L 27.0-33.0 pg MCHC 32.2 31.0-35.0 g/dl RDW 14.1 11.0-16.0 % PLT 242 160-400 X10*3/uL MPV 10.7 9.4-12.3 fL NRBC Pct Auto 0.0 0.0-0.2 /100WBC NRBC Abs Auto 0.000 0.0-0.012 X10*3/uL RUN: 08/20/24 5623 PAGE 1 [facility] [address] [place] [id number] Metalworker: Neri Ruiz M.D. Specimen Inquiry Name: Kimberly Domingo Age/Sex: 24/ : 2000 Unit#: [id number] Attend Dr: Tatiana Stewart Re08/05/24 Status: DEP REF Location: [facility] Disch: SPEC : [id number] ARACELI: 08/05/24 STATUS: COMP REQ : [id number] RECD: 08/05/24 [facility] DR: Tatiana Stewart COMP: 08/05/24 ENTERED: 08/05/[address]: ORDERED: IRON PROF, Ferritin, Lipid Panel Test Result Flag Reference Iron 50 30-160 mcg/dL TIBC 318 228-428 mcg/dL Saturation 16 15-50 % UIBC 268 ug/dL Ferritin 55 10-122 ng/mL Triglyceride 142 <150 mg/dL Desirable Triglyceride: less than 150 mg/dL Borderline High Triglyceride 150-199 mg/dL High Triglyceride: 200-499 mg/dL Very High Triglyceride: greater than or equal to 5OO mg/dL Cholesterol 178 <200 mg/dL Desirable Cholesterol: less than 200 mg/dL Borderline High Cholesterol: 200-239 mg/dL High Cholesterol: greater than 239 mg/dL LDL Calculated 115 H <100 mg/dL Desirable LDL: less than 100 mg/dL Near Optimal/Above Optimal LDL: 110-129 mg/dL Borderline High LDL: 130-159 mg/dL High LDL: 160-189 mg/dL Very High LDL: greater than or equal to 190 mg/dL HDL 35 L >40 mg/dL Desirable HDL: greater than 40 mg/dL Note: This HDL assay may give artificially low results in patients with liver disease. END OF REPORT END OF REPORT Coding Level of Care Code Tele Est Pt Level 3 (13703) Complex EM visit Add On G2211 Diagnoses Allergy, initial encounter T78.40XA Encounter type: initial encounter MARCEL (generalized anxiety disorder) F41.1 Moderate mixed hyperlipidemia not requiring statin therapy E78.2 Hyperlipidemia type: moderate mixed hyperlipidemia not requiring statin therapy Iron deficiency anemia, unspecified iron deficiency anemia type D50.9 Iron deficiency anemia type: unspecified iron deficiency Moderate episode of recurrent major depressive disorder F33.1 Major depression episode severity: moderate Encounter for follow-up examination Z09 Assessment & Plan Assessment & Plan (1) Allergies: Comment: refer for allergy testing per request Code(s): T78.40XA - Allergy, unspecified, initial encounter Category: Medical Qualifiers: Encounter type: initial encounter Qualified Code(s): T78.40XA - Allergy, unspecified, initial encounter (2) MARCEL (generalized anxiety disorder): Code(s): F41.1 - Generalized anxiety disorder Category: Medical (3) Hyperlipidemia: Code(s): E78.5 - Hyperlipidemia, unspecified Category: Medical Qualifiers: Hyperlipidemia type: moderate mixed hyperlipidemia not requiring statin therapy Qualified Code(s): E78.2 - Mixed hyperlipidemia (4) Iron deficiency anemia: Code(s): D50.9 - Iron deficiency anemia, unspecified Category: Medical Qualifiers: Iron deficiency anemia type: unspecified iron deficiency Qualified Code(s): D50.9 - Iron deficiency anemia, unspecified (5) MDD (major depressive disorder), recurrent episode: Code(s): F33.9 - Major depressive disorder, recurrent, unspecified Category: Medical Qualifiers: Major depression episode severity: moderate Qualified Code(s): F33.1 - Major depressive disorder, recurrent, moderate (6) Encounter for follow-up examination: Code(s): Z09 - Encounter for follow-up examination after completed treatment for conditions other than malignant neoplasm Plan . Orders: Referrals Allergy & Immunology Referral T78.40XA - Allergy, unspecified, initial encounter Medications: Refilled ferrous sulfate Take one tablet daily, reduce for GI side effects. 325 mg PO DAILY 90 tabs 2RF
[2024-08-20 16:35] VITALS: BMI 36.1
--- OUTSIDE RECORDS SUMMARY | 2024-08-20 17:49 | XMS_ITS | Encounter Summary ---
Author Organization [facility] Address [address] [place] [address] Phone Care Team Providers Care Fitness Attendant Name Role Phone Jacque Palmer MD Primary Care Provider [phone] Encounter Details Date Type Department Care Team (Late st Contact Info) Description 09/14/2015 Documentation [facility] [place] Family Medicine [address] [place] [address] Family Medicine, Physician [address] [place], [place] [id number] Social History Tobacco Use Types Packs/Day Years [...] on filedocumented in this encounter Care Teams Fitness Attendant Relationship Specialty Start Date End Date Jacque Palmer MD [address] [place] [address] PCP - General Pediatrics 04/08/20 10/15/22 documented as of this encounter
== END 2024-08-20 16:44 | disposition home or self-care (01) ==
LOC: HO.HMCFM 15:12
PROVIDERS: PCP Nurse Practitioner Family; Visit Provider Nurse Practitioner Family
DX: T78.40XA Allergy, unspecified, initial encounter (principal); F41.1 Generalized anxiety disorder; F33.1 Major depressive disorder, recurrent, moderate; E78.2 Mixed hyperlipidemia; D50.9 Iron deficiency anemia, unspecified; Z09 Encounter for follow-up examination after completed treatment for conditions other than malignant neoplasm

== ENCOUNTER → 2024-08-20 15:12 | Outpatient (BNVA) | payer OTHER, SELFPAY | PROVIDERS: PCP Nurse Practitioner Family; Visit Provider Nurse Practitioner Family | DX: Z13.89 Encounter for screening for other disorder (principal) ==

== ENCOUNTER 2024-09-02 12:05 | Outpatient (AMB) | payer OTHER, SELFPAY ==
--- NOTE | 2024-09-02 12:19 | A.OFFPC_ITS ---
Intake Visit Reasons: Discharge Intake Note: telehealth for vaginal discharge x1 month. Intelligence Operations Specialist Required: No Allergies No Known Allergies Allergy (Verified 09/02/24 13:23) Medication List - Last Reconciled 09/02/24 by JENNIFER Garcia-BC chlorhexidine gluconate 0.12% PO PRN ferrous sulfate 325 mg PO DAILY Tobacco use date assessed: 09/02/24 Dental Screening Dental Screen Date: 09/02/24 Did you have a dental visit in the last 12 months?: No Did you have a dental problem in the last 6 months where you did not have access to dental care?: No Was dental information given to patient?: Patient has dentist HPI HPI Comments History of Present Illness Details 24 y/o F with obesity, renal stones, GA D, MDD, hemorrhoids, low back pain, anemia, hyperlipidemia, HSV 1 Status post nephrolithotomy Family hx: No changes Health Maintenance: Pap reports UTD 2022 Tdap declined. Specialists: Counseling Chiro Derm Telehealth visit today for routine fu: History of Present Illness - The patient is a 24-year-old female pr esenting with concerns of unusual vaginal discharge with a foul odor. - Symptoms began in early June, initial ly persistent for one week, then subsided and returned intermittently. - Discharge has a foul odor, initially f ishy, more frequent, white in color, and not associated with itching. - Denies burning or discomfort with urin ation. - Home UTI test indicated positive leuko cytes, negative nitrites. - Recent STI panel tested negative for S TIs including gonorrhea and chlamydia. - Used boric acid suppositories with tem porary relief. Review of Systems - Genitourinary: Reports unusual vaginal discharge, foul odor; Denies itching, burning with urination. - Sexual Health: Denies concern for sexu ally transmitted diseases; Previously tested negative for gonorrhea and chlamydia. Results - Labs: Positive leukocytes, negative ni trites from home UTI test. Assessment and Plan 1. Bacterial Vaginosis - Diagnosed with bacterial vaginosis. - Prescribed vaginal antimicrobial cream for seven-night usage. - Advised to avoid intercourse and alcoh ol during treatment. - Anticipated treatment-related discharg e discussed. - Acknowledged prior boric acid use, ty atment plan for comprehensive management. - Refill provided for possible recurrenc e. - Monitor symptoms and report if persist ent. Telehealth Attestation The documentation for the visit conducted via video is confirmed to be accurate and thorough. The patient has been explained that this is an interactive (audio/video) telehealth encounter and what that consists of. The patient understands and wishes to proceed. Xcerion platform was used. Total time spent caring for the patient today was 15 minutes. This includes time spent before the visit reviewing the chart, time spent during the visit, and time spent after the visit on documentation, reviewing laboratory results, diagnostic imaging, medications, performing a medically necessary evaluation, counseling on diagnoses, care coordination, ordering appropriate tests, ordering appropriate medications, review of tests performed by other providers, reporting test results with the patient, communication with other healthcare providers. [facility] Medical History (Updated 09/02/24 @ 13:28 by Tatiana Stewatr, [facility]) H/O nephrolithotomy with removal of calculi Surgical History (Updated 07/01/23 @ 16:17 by Lexie Parker CMA) No pertinent past surgical history Family History (Updated 07/01/23 @ 16:17 by Lexie Parker CMA) Mother Hypertension Diabetes Social History (Updated 07/01/23 @ 16:19 by Lexie Parker CMA) Household Members: Family Housing: Apartment 75 years or older and lives alone: No Alcohol intake: current Alcohol intake frequency: holidays/special occasions only Patient Tobacco Use Status: Never used Tobacco e-Cigarette/Vaping Use: Never Used service: No Current occupational status: employed Current occupation: [employer] Current occupational exposures/hazards: No Cognitive needs: No Hearing needs: No Vision needs: Yes (wears glasses ) Questionnaire Thrive Questionnaire Date Thrive assessed: 03/16/24 MARCEL-7 AMB Questionnaire MARCEL-7 Date MARCEL - 7 assessed: 03/16/24 Source: Developed by Drs. Ubaldo Pierre, Rylee Almazan, Cuate Lerma and colleagues, with an educational ricky from [employer]. Physical exam (Primary Care) Tobacco/Smoking Status: Tobacco use Status Tobacco use date assessed 09/02/24 09/02/24 12:20 Patient Tobacco Use Status Never used Tobacco 09/02/24 12:20 e-Cigarette/Vaping Use Never Used 09/02/24 12:20 Thrive Assessment: Date of Thrive Assessment Date Thrive assessed 03/16/24 09/02/24 12:20 Telehealth Telehealth Telehealth Platform: [employer] Location of provider rendering services: practice address Location of patient: address on file Patient Identification confirmed using: Name, : Yes Telehealth method: voice only Patient verbally consented to treatment: Yes Patient verbally consented to billing insurance company: Yes Patient informed of any privacy concerns related to visit: Yes Minutes spent on Phone/Video with Pt.: 7 Coding Level of Care Code Tele Est Pt Level 2 (39092) Complex EM visit Add On G2211 Diagnoses Bacterial vaginosis N76.0; B96.89 Assessment & Plan Assessment & Plan (1) Bacterial vaginosis: Code(s): N76.0 - Acute vaginitis; B96.89 - Other specified bacterial agents as the cause of diseases classified elsewhere Category: Medical Plan . Medications: New metronidazole 0.75%(37.5mg/5gram) 1 appful vaginal DAILY 5 days 70 grams 0RF metronidazole 0.75%(37.5mg/5gram) 1 appful vaginal DAILY 70 grams 8RF 5 days Patient Instructions: What is bacterial vaginosis? Bacterial vaginosis, or BV, is an infection in the vagina that can cause bad-smelling vaginal discharge. Vaginal discharge is fluid that comes out of the vagina (figure 1 https://www.[employer]/contents/image?imageKey=PI%9N01273&topicKey=PI%2B44329& source=see_link ). Some vaginal discharge is normal. But people with BV can have a lot of vaginal discharge, discharge that smells bad, or vaginal irritation. BV is caused by certain bacteria (germs). The vagina normally has different types of bacteria in it. But when the amounts or the types of bacteria change, an infection can happen. BV usually affects people who are, or have been, sexually active. Your risk of getting it increases if you have a new sex partner or more than 1 partner. This is true whether your partners are male or female. If you have BV, you have a higher chance of catching other infections that are spread through sex. You can lower this risk by using condoms when you have sex. What are the symptoms of BV? Some people have no symptoms. When symptoms do happen, they often include a fishy-smelling vaginal discharge or a burning feeling in the vagina. The discharge is watery and off-white or stephens. The smell might be more noticeable: ?During your period ?After sex with a male partner ? This happens when semen (the fluid that is released during sex) mixes with your vaginal fluids. Is there a test for BV? Yes. Your doctor or nurse will do an exam. They will also take a sample of your vaginal discharge, and do lab tests to look for an infection. How is BV treated? BV is treated with antibiotics. The ones most often used are: ?Metronidazole https://www.[employer]/contents/wbvpboklfvkfz-zxgwitl-nprg-information?topicRe h=11757&source=see_link ?Clindamycin https://www.[employer]/contents/hkvxrxnjhsk-fxnufvz-jsvo-information?topicRef= 92513&source=see_link ?Tinidazole https://www.[employer]/Prieto [employer]/eyeqsbmemg-bvjuwjc-vvtl-information?topicRef=1 5592&source=see_link ?Secnidazole https://www.[employer]/contents/secnid tszff-bpjtvlo-ydgv-information?grgulHhp=44299&source=see_link Some are pills you swallow. Others are a gel or cream you put inside your vagina. Some people have fewer side effects when they use the gel or cream. Other people prefer not to put medicine in the vagina. You and your doctor or nurse will decide which medicine is right for you. It is important to finish all the antibiotics, even if you start to feel better. Taking all the medicine can help prevent your symptoms from coming back. Do my sex partners need to be treated if I have BV? It depends: ?If you have a male sex partner, your doctor or nurse will likely suggest your partner be treated with antibiotics. Treating the male partner can lower the chances you will get BV again in the future. ?If you have a female sex partner, tell them about your BV. That way, they can be checked for BV too, and get treatment if needed. What if my symptoms come back? Once you have had BV, it can come back, even if you are not having sex. If your symptoms come back, tell your doctor or nurse. You should be checked again and might need treatment with more medicine. Using condoms correctly every time you have sex can help lower the chance of symptoms coming back. Some people get BV over and over again. If this happens to you, your doctor might suggest taking medicine for several months, or adding another medicine for a few weeks. This might help prevent future infections. What if I am and have symptoms of BV? Tell your doctor or nurse. They will check for this infection and others. If you have BV and are , the infection is treated with pills. Treatment is important, because BV might increase the risk of premature or . Can BV be prevented? Sometimes. You can help lower the risk of BV by using condoms every time you have sex. You can also avoid things that increase the risk of BV. For example: ?Avoid douching (putting liquid inside your vagina to rinse it out). ?Do not smoke. Try to quit if you already smoke. ?Avoid sharing sex toys, and clean toys between uses. When should I call the doctor? Call your doctor or nurse for advice if: ?Your vaginal discharge comes back or gets worse. ?You have severe belly pain. ?You have pain, itching, or burning in or around your vagina. ?You have a fever of 100.4?F (38?C) or higher, or chills. ?You have vaginal bleeding not related to your period. ?You have pain with sex.
--- OUTSIDE RECORDS SUMMARY | 2024-09-02 14:13 | XMS_ITS | Encounter Summary ---
Author Organization [facility] Address [address] [place] [address] Phone Care Team Providers Care Group Counselor Name Role Phone Jacque Palmer MD Primary Care Provider [phone] Encounter Details Date Type Department Care Team (Late st Contact Info) Description 09/14/2015 Documentation [facility] [place] Family Medicine [address] [place] [address] Family Medicine, Physician [address] [place], [place] [phone] Social History Tobacco Use Types Packs/Day Years [...] on filedocumented in this encounter Care Teams Group Counselor Relationship Specialty Start Date End Date Jacque Palmer MD [address] [place] [address] PCP - General Pediatrics 04/08/20 10/15/22 documented as of this encounter
== END 2024-09-02 13:31 | disposition home or self-care (01) ==
LOC: HO.HMCFM 12:05
PROVIDERS: PCP Nurse Practitioner Family; Visit Provider Nurse Practitioner Family
DX: N76.0 Acute vaginitis (principal); B96.89 Other specified bacterial agents as the cause of diseases classified elsewhere

== ENCOUNTER → 2024-09-02 12:05 | Outpatient (BNVA) | payer OTHER, SELFPAY | PROVIDERS: PCP Nurse Practitioner Family; Visit Provider Nurse Practitioner Family | DX: Z13.89 Encounter for screening for other disorder (principal) ==

== ENCOUNTER 2024-12-02 12:46 | Outpatient (REF) | payer OTHER, SELFPAY ==
--- OUTSIDE RECORDS SUMMARY | 2024-12-02 15:18 | XMS_ITS | Encounter Summary ---
Author Organization [facility] Address [address] [place] [address] Phone Care Team Providers Care Data Entry Clerk Name Role Phone Jacque Palmer MD Primary Care Provider [phone] Encounter Details Date Type Department Care Team (Late st Contact Info) Description 12/24/2014 Documentation [facility] [place] Family Medicine [address] [place], [place] [id number] Family Medicine, Physician [address] [place] [address] Social History Tobacco Use Types Packs/Day Years [...] on filedocumented in this encounter Care Teams Data Entry Clerk Relationship Specialty Start Date End Date Jacque Palmer MD [address] [facility] [place] [address] PCP - General Pediatrics 04/08/20 10/15/22 documented as of this encounter
--- OUTSIDE RECORDS SUMMARY | 2024-12-02 15:18 | XMS_ITS | Clinical Summary ---
Author Organization [facility] Address [address] [place] [address] Phone Care Team Providers Care Delicate Fabrics Presser Name Role Phone Ginger Mccollum NP Primary Care Provider Allergies No known active allergies Medications ibuprofen (ADVIL,MOTRIN) 200 MG tablet Take 200 mg by mouth every 6 (six) hours as needed for pain (specific location in comments). Active polyethylene glycol (MIRALAX) 17 gram packet Take 17 g by mouth daily. Active Active Problems Problem Noted Date Diagnosed Date Irritable bowel syndrome with constipation 11/20 Blood in stool 11/03/2017 Constipation 10/31/2017 Abdominal pain 10/31/2017 Elevated anti-tissue transglutaminase (tTG) IgA level 10/31/2017 Social History Tobacco Use Types Packs/Day Years Used Date Smoking Tobacco: Never Smokeless Tobacco: Never Alcohol Use Standard Drinks/Week Comments No 0 (1 standard drink = 0.6 oz pur e alcohol) Education Answer Date Recorded Are you interested in more education? Not on nando e 07/06/2022 Are you concerned about learning? Not on file 07/06/2022 No 07/06/2022 No 07/06/2022 Digital Access Answer Date Recorded No 08/04/2022 No 08/04/2022 No 08/04/2022 Reliable internet access at home? Not on file 08/04/2022 Device with a working camera? Not on file Comments Unknown Sex and Gender Information Value Date Recorded Sex Assigned at Not on file Legal Sex Female 2:22 PM EDT Gender Identity Not on file Sexual Orientation Not on file Last Filed Vital Signs Vital Sign Reading Time Taken Comments Blood Pressure 110/70 11/20/2017 2:42 PM EDT Pulse 76 11/20/2017 2:42 PM EDT Temperature 36.6 C (97.9 F) 11/08/2017 11:00 AM EDT Respiratory Rate 12 11/20/2017 2:42 PM EDT Oxygen Saturation 100% 11/08/2017 12:15 PM EDT Inhaled Oxygen Concentration - - Weight 65.6 kg (144 lb 9.6 oz) 11/20/2017 2:42 P M EDT Height 155 cm (5' 1.02 ) 11/20/2017 2:42 PM EDT Body Mass Index 27.3 11/20/2017 2:42 PM EDT Plan of Treatment Health Maintenance Due Date Last Done Comments DEPRESSION SCREENING 2012 SMOKING Hx and SMOKELESS TOBACCO SCREENING 2013 CHLAMYDIA SCREENING 2016 HEPATITIS C SCREENING 2018 HIV ONE-TIME SCREENING (18-65 YEARS) 2018 PAP SMEAR 2021 Adult Td,Tdap Booster 09/20/2021 09/21/2011 INFLUENZA VACCINE (#1) 2024 8, 12/23/2015, 12/01/2014, Additional history exists COVID-19 VACCINE ( season) 2024 07/08/2021, 06/17/2021 PNEUMOCOCCAL VACCINES (0-49 years) Aged Out 01/02/2001, 2000, 2000 No longer eligible based on patient's age to complete this topic HIB VACCINES Completed 06/15/2002, 09/2002, 2000, Additional history exists HPV VACCINES Completed 07/03/2013, 11/09, 09/21/2011 HEPATITIS A VACCINES Completed 01/26/2014, 07/04/19 14 MENINGOCOCCAL VACCINES (ACWY) Completed 06/07/2017, 09/21/2011 MENINGOCOCCAL VACCINES (B) Aged Out N o longer eligible based on patient's age to complete this topic Medical Devices Not on file Insurance [employer] Care Teams Delicate Fabrics Presser Relationship Specialty Start Date End Date Ginger Mccollum NP [address] [place] [address] PCP - General Pediatrics 10/15/17 Additional Source Comments The information contained in this document represents components of the legal health record. It is not the complete legal health record.[facility]
--- OUTSIDE RECORDS SUMMARY | 2024-12-02 15:18 | XMS_ITS | Encounter Summary ---
Author Organization [facility] Address [address] [place] [address] Phone Care Team Providers Care Exhauster Engineer Name Role Phone Jacque Palmer MD Primary Care Provider [phone] Encounter Details Date Type Department Care Team (Late st Contact Info) Description 07/25/2010 Documentation [facility] [place] Family Medicine [address] [place] [address] Family Medicine, Physician [address] [place], [place] [id number] Social History Tobacco Use Types Packs/Day Years [...] on filedocumented in this encounter Care Teams Exhauster Engineer Relationship Specialty Start Date End Date Jacque Palmer MD [address] [place] [address] PCP - General Pediatrics 04/08/20 10/15/22 documented as of this encounter
--- OUTSIDE RECORDS SUMMARY | 2024-12-02 15:18 | XMS_ITS | Encounter Summary ---
Author Organization [facility] Address [address] [place] [address] Phone Care Team Providers Care Machine Tool Designer Name Role Phone Jacque Palmer MD Primary Care Provider [phone] Encounter Details Date Type Department Care Team (Late st Contact Info) Description 09/14/2015 Documentation [facility] [place] Family Medicine [address] [place], [place] [id number] Family Medicine, Physician [address] [place], [place] [address] Social History Tobacco Use Types Packs/Day Years [...] on filedocumented in this encounter Care Teams Machine Tool Designer Relationship Specialty Start Date End Date Jacque Palmer MD [address] [place] [address] PCP - General Pediatrics 04/08/20 10/15/22 documented as of this encounter
--- OUTSIDE RECORDS SUMMARY | 2024-12-02 15:18 | XMS_ITS | Encounter Summary ---
Author Organization [facility] Address [address] [place] [address] Phone Care Team Providers Care Gear Keeper Name Role Phone Jacque Palmer MD Primary Care Provider [phone] Encounter Details Date Type Department Care Team (Late st Contact Info) Description 10/25/2016 Conversion Encounter [facility] [place] [address] [place] [address] Social History Tobacco Use Types Packs/Day Years [...] on filedocumented in this encounter Care Teams Gear Keeper Relationship Specialty Start Date End Date Jacque Palmer MD [address] [place] [address] PCP - General Pediatrics 04/08/20 10/15/22 documented as of this encounter
--- OUTSIDE RECORDS SUMMARY | 2024-12-02 15:18 | XMS_ITS | Encounter Summary ---
Author Organization [facility] Address [address] [place] [address] Phone Care Team Providers Care Moose Hunter Name Role Phone Jacque Palmer MD Primary Care Provider Encounter Details Date Type Department Care Team (Late st Contact Info) Description 01/29/2014 Documentation [facility] [place] Family Medicine [address] [place] [address] Family Medicine, Physician [address] [place], [place] [address] Social History Tobacco Use Types Packs/Day Years [...] on filedocumented in this encounter Care Teams Moose Hunter Relationship Specialty Start Date End Date Jacque Palmer MD [address] [place] [address] PCP - General Pediatrics 04/08/20 10/15/22 documented as of this encounter
--- OUTSIDE RECORDS SUMMARY | 2024-12-02 15:18 | XMS_ITS | Clinical Summary ---
Author Organization [facility] Address [address] [place] [address] Phone Care Team Providers Care Tin Worker Name Role Phone Unavailable Primary Care Provider Unavailabl e Allergies No known active allergies Medications ibuprofen 200 MG tablet Take 200 mg by mouth every 6 hours as needed. Active Active Problems Problem Noted Date Diagnosed Date History of COVID-19 06/30/2020 Overview (06/30/2020): 01/28 dx'ed - tested at [facility]. Other hemorrhoids 03/01/2020 Influenza vaccination declined [...] of hip, No family history of Sudden /VT under age 55, No family history of [...] 83 06/30/2020 11:14 AM EDT Temperature 36.1 C (96.9 F) 06/30/2020 11:14 AM EDT Respiratory Rate 16 02/03/2019 9:01 AM EST [...] 01/07/2003, Additional history exists Influenza Vaccines (#1) 2024 06/08/19 18, 12/23/2015, 12/01/2014, Additional history exists COVID-19 Vaccine ( season) 2024 07/08/2021, 06/17/2021 Hepatitis B Vaccines Completed 2000, [...] complete this topic Procedures * Due to [facility] law, this organization might not be sharing sensitive test results. Procedure Name Priority Date/Time Associated Diagnosis Comments CHLAMYDIA AND GONORRHEA, AMPLIFIED Routine 06/30/2020 11:26 AM EDT Screening examination for bacterial and spirochetal disease from Last 3 Months or Most Recently Relevant to Health Maintenance Results * Due to [place] law, this organization might not be sharing sensitive test results. * Chlamydia and Gonorrhoea, Amplified (06/30/2020 11:26 AM EDT) Chlamydia Trachomatis, DNA Probe NEGATIVE (NEG) [facility] Comment: No Chlamydia Trachomatis RNA detected in this patient's sample (REFERENCE RANGE/NORMAL VALUE: NOT DETECTED) Note: This test uses database specialist- mediated amplification method to detect rRNA from C. Trachomatis URINE GC AMP PROBE NEGATIVE (NEG) [facility] Comment: No Neisseria Gonorrhoeae RNA detected in this patient's sample (REFERENCE RANGE/NORMAL VALUE: NOT DETECTED) NOTE: This test uses database specialist-mediated amplification method to detect rRNA from N.Gonorrhoeae. [...] without risk of sexual abuse. Consult the [facility] if needed. Contact phone number . Therapeutic failure or success cannot be determined with the Aptima Combo2 assay since nucleic acid may persist following appropriate antimicrobial therapy. The Centers for Disease Control and Prevention (CDC) recommends confirmatory retesting using culture or a different nucleic acid amplification test when positive results occur, if indicated. Testing performed or reported by [facility], a Service of [facility], [address] [place] [address] Khadar Carlos MD, Manager Forms Urine 06/30/2020 11:2 6 AM EDT 06/30/2020 8:19 PM EDT us Jeremie Brooks MD LAB MICROBIOLOGY - GENERAL ORDER REA Final Result [facility] from Last 3 Months or Most Recently Relevant to Health Maintenance Insurance [facility]
--- OUTSIDE RECORDS SUMMARY | 2024-12-02 15:18 | XMS_ITS | Encounter Summary ---
Author Organization [facility] Address [address] [place] [address] Phone Care Team Providers Care Senior C Web Developer Name Role Phone Ginger Mccollum NP Primary Care Provider [phone] Encounter Details Date Type Department Care Team (Late st Contact Info) Description 11/08/2017 Procedure Pass OR Admitting Dept - Virtual Department [address] [place] [address] Social History Tobacco Use Types Packs/Day Years Used Date Smoking Tobacco: Never Smokeless Tobacco: Never Alcohol Use Standard Drinks/Week Comments No 0 (1 standard drink = 0.6 oz pur e alcohol) Comments Unknown Sex and Gender Information Value Date Recorded Sex Assigned at Not on file Legal Sex Female 2:22 PM EDT Gender Identity Not on file Sexual Orientation Not on file documented as of this encounter Plan of Treatment Not on file documented as of this encounter Visit Diagnoses Not on filedocumented in this encounter Care Teams Senior C Web Developer Relationship Specialty Start Date End Date Ginger Mccollum NP [address] [place] [address] PCP - General Pediatrics 10/15/17 documented as of this encounter Additional Source Comments The information contained in this document represents components of the legal health record. It is not the complete legal health record.[facility]
--- OUTSIDE RECORDS SUMMARY | 2024-12-02 15:18 | XMS_ITS | Encounter Summary ---
Author Organization [facility] Address [address] [place] [address] Phone Care Team Providers Care Grinder Outside Diameter Name Role Phone Jacque Palmer MD Primary Care Provider [phone] Encounter Details Date Type Department Care Team (Late st Contact Info) Description 03/30/2011 Documentation [facility] [place] [address] [place] [address] Family Medicine, Physician [address] [place], [place] [address] Social History Tobacco Use Types Packs/Day Years [...] on filedocumented in this encounter Care Teams Grinder Outside Diameter Relationship Specialty Start Date End Date Jacque Palmer MD [address] [facility] [place] [address] PCP - General Pediatrics 04/08/20 10/15/22 documented as of this encounter
--- OUTSIDE RECORDS SUMMARY | 2024-12-02 15:18 | XMS_ITS | Encounter Summary ---
Author Organization [facility] Address [address] [place] [address] Phone Care Team Providers Care Immigration Officer Name Role Phone Jacque Palmer MD Primary Care Provider [phone] Encounter Details Date Type Department Care Team (Late st Contact Info) Description 04/14/2014 Documentation [facility] [place] Family Medicine [address] [place] [address] Family Medicine, Physician [address] [place], [place] [address] Social History Tobacco Use Types Packs/Day Years [...] on filedocumented in this encounter Care Teams Immigration Officer Relationship Specialty Start Date End Date Jacque Palmer MD [address] [place] [address] PCP - General Pediatrics 04/08/20 10/15/22 documented as of this encounter
--- OUTSIDE RECORDS SUMMARY | 2024-12-02 15:18 | XMS_ITS | Encounter Summary ---
Author Organization [facility] Address [address] [place] [address] Phone Care Team Providers Care Cargo Checker Name Role Phone Jacque Palmer MD Primary Care Provider [phone] Encounter Details Date Type Department Care Team (Late st Contact Info) Description 03/30/2011 Documentation [facility] [place] Family Medicine [address] [place] [address] Family Medicine, Physician [address] [place], [place] [address] Social History Tobacco Use Types Packs/Day Years [...] on filedocumented in this encounter Care Teams Cargo Checker Relationship Specialty Start Date End Date Jacque Palmer MD [address] [place] [address] PCP - General Pediatrics 04/08/20 10/15/22 documented as of this encounter
[2024-12-02 15:35] LABS: CT PCR Urine NOT DETECTED (Not Detect.); NG PCR Urine NOT DETECTED (Not Detect.)
[2024-12-03 03:53] LABS: Syphilis Screen Nonreactive (Nonreactive)
== END 2024-12-02 12:47 | disposition home or self-care (01) ==
LOC: HO.LAB 12:46
PROVIDERS: PCP Nurse Practitioner Family; Visit Provider Nurse Practitioner Family
DX: Z11.3 Encounter for screening for infections with a predominantly sexual mode of transmission (principal); Z01.84 Encounter for antibody response examination; Z11.8 Encounter for screening for other infectious and parasitic diseases
CPT/HCPCS: 86780; 87491; 87591